=== PATIENT | male | born 1950 | race Caucasian/White ===

== ENCOUNTER 2017-01-15 11:47 | Observation (INO) | payer MEDICARE ==
[~2017-01-15] VITALS: Ht 194.3 cm; Wt 80.9 kg
[~2017-01-15 11:47] MED LIST: ASPIRIN 81MG TA81 MG PO; ASPIRIN ADULT L81 M2 PO; BACLOFEN 10MG T10 MG PO; CIPRO 500MG TA500 MG PO; CLINDAMYCIN150 MG PO; COREG 12.5 MG12.5 MG; COREG 3.125M3.125 MG PO; CRESTOR10 MG PO; LORTAB 5/500 501 TAB PO; NAPROSYN250 M1 PO; PHENERGAN 25MG.25 M1 PO; PREDNISONE 10MG10 MG PO
[2017-01-15 11:49] VITALS: BP 129/78
[2017-01-15 12:11] LABS: HEMOGLOBIN 12.7 g/dL (14.1-18.0); LYMPH # 1.5 K/mm3 (0.7-4.5); LYMPH % 18.1 % (10-50)
--- NOTE | 2017-01-15 12:32 | RADIOLOGY REPORT PS360 ---
CT HEAD WITHOUT CONTRAST CT BONE WINDOWS included ORDERING PHYSICIAN : BEVERLY SANTIAGO PATIENT AGE: 66 years GENDER: Male PROCEDURE: Routine axial images headwithout contrast. Brain & bone windows HISTORY: POSSIBLE SYNCOPLE EPISODE; DIZZINESS headache COMPARISON: Previous CT head 11/20/2011 FINDINGS: No significant change in prior studies. 2012 No acute intracranial findings. No hemorrhage. No mass effect or mass lesion. No subdural nor extra-axial collection. Mild diffuse cerebral atrophy again noted similar to previous studies. The posterior fossa appear satisfactory and unremarkable. The skull is intact. The visualized portions of the paranasal sinuses are clear. Mastoid air cells, middle ear & IACs are unremarkable. Cerumen left external canal noted IMPRESSION: No acute intracranial findings. No significant change since September 2011
--- NOTE | 2017-01-15 12:35 | Emergency Room Report ---
History of Present Illness Time Seen by [id number] Presenting Problem in Triage Pt arrived:Ambulance Stretcher Presenting Problem:PT WAS SITTING IN [place] WHEN HE BECAME DIZZY AND SWEATY. FELT LIKE HE WAS GOING TO PASS OUT. EMS REPORTS PT WAS AWAKE AND ALERT WHEN THEY ARRIVED BUT DIRECTOR PUBLIC SERVICE ON SCENE DESCRIBED WHAT APPEARED TO BE A FOCAL SEIZURE Onset of symptoms date/time:/ or onset unknown for:MEDICAL HX UNKNOWN Treatment Prior to Arrival: 12 LEAD, V/S , 20 G IN THE LEFT AC METHODS TIME ANALYST Provided by :DIRECTOR PUBLIC SERVICE Sepsis Risk Assessment: Temp: 98.3 B/P: 129/78 MAP: 95 Pulse: 59 Resp: 16 Recent fever? N Clinical Suspician of Infection? N Mental Status: 1 - Regular (Normal Baseline) Sepsis Risk:Low Sepsis Risk Have you (or family members/close friends) recently traveled outside the [place]? N If Yes, where/when: Have you had exposure to infectious disease within the past month? N TB? Other? Specify: i agree with the above history, the patient passed out for a minute , denies , cp, palpitation and soa. he is currently asymptomatic. Source patient, RN notes reviewed, family Exam Limitations no limitations ALLERGIES Coded Allergies: lidocaine (Severe, P-[id number]/THROAT; DIFFICULTY BREATHING 05/18/15) Penicillins (05/18/15) sulfamethoxazole (From Bactrim) (05/18/15) trimethoprim (From Bactrim) (05/18/15) Home Medications Reported Medications Carvedilol (Coreg 3.125MG) 3.125 MG PO BID Rosuvastatin Calcium (Crestor) 10 MG PO QHS Naproxen (Naprosyn) 250 MG PO BID Promethazine Hydrochloride (Phenergan 25MG Tab) 12.5 MG PO Q4-6H PRN BACLOFEN (Baclofen) 10 MG PO TID Aspirin 81 MG PO DAILY History Medical History General CAD? No Angina: No [place]: No Hypertension? No Hyperlipidemia? No CHF? No DVT? No PE? No COPD? No Asthma? No Anemia? No GERD? No Gastric ulcers? No GI Bleed? No Hernia? No Thyroid Problems? No Hypothyroidism? No CVA? No Seizures? No Diabetes? No Renal Insuffiency? No End Stage Renal Disease? No UTI? No Stones? No BPH? No GB Disease: No Nephritic Syndrome? No Asplenia? No Hepatitis? No Sickle Cell Disease? No Arthritis? No Migraines? No Cataracts? No Glaucoma? No MRSA? No HIV? No TB? No Anxiety? No Depression? No Cancer? No More? No Immunization Hx DT/Tetanus 5-10 YRS Flu 2012-FSN Pneumonia Received In Past Surgical Hx Previous Surgery?Y BACK SURGERY OPEN HEART VALVE REPLACE Family History Family Hx Diabetes No CAD No Hypertension No Hyperlipidemia No Cancer Yes TB No Social History Smoking Hx Smoker: Never Smoker Tobacco: No Alcohol Alcohol: No Review of Systems All Other Systems Reviewed and Negative Constitutional no symptoms reported, see HPI Eyes no symptoms reported ENT no symptoms reported. Respiratory no symptoms reported Cardiovascular no symptoms reported Gastrointestinal no symptoms reported Genitourinary no symptoms reported. Musculoskeletal no symptoms reported Skin no symptoms reported Psychiatric/Neurological no symptoms reported Physical Exam Vital Signs Vital Signs Date Time Temp Pulse Resp B/P Pulse O2 O2 Flow FiO2 Ox Delivery Rate 01/15 1511 97.4 65 16 100/73 98 01/15 1321 97.4 58 16 118/84 98 / 1240 97.6 51 16 126/69 99 /06 1149 98.3 59 16 129/78 98 - WBC >12,000 or <4,000 or 10% bands? 2 or more SIRS Criteria Met? B/P:129/78 MAP:95 Creatinine >2.0? UA output<0.5ml/kg/hr for 2 hrs? Platelet count >100,000? Lactate >2.0mmol/1? INR >1.2 or PTT > than 60 sec? Evidence of Organ Dysfunction? Provider documented clinical suspician of infection? N Sepsis Criteria Count: 0 Sepsis Risk: Low Sepsis Risk General Appearance normal appearance, WD/WN Eye Exam - bilateral eye normal exam, bilateral eye PERRL, bilateral eye EOMI Ear, Nose, Throat hearing grossly normal, normal ENT inspection Neck normal inspection, non-tender, supple, full range of motion Respiratory Status Yes: trachea midline, chest symmetrical, non tender chest. No: respiratory distress. Lung Sounds bilateral: normal breath sounds, lungs clear. Cardiovascular normal exam, regular rate/rhythm, no peripheral edema, no gallop, no JVD, no murmur, no rub, normal peripheral pulses Peripheral Pulses Pulses normal Yes Gastrointestinal normal bowel sounds, normal exam, non tender, soft, no organomegaly Back normal inspection, no CVA tenderness, no vertebral tenderness Neurologic alert, sales representative groceries II-XII nml as tested, normal exam, oriented x 3 Reflexes Reflexes normal Yes Lymphatic no adenopathy Medical Decision Making LABS/Meds/Orders Pt receiving controlled substance in ED? No Results/Orders Laboratory Tests 01/15/17 1440: Troponin I 0.07 H 01/15/17 1156: Sodium 139, Potassium 3.9, Chloride 105, Carbon Dioxide 29, BUN 14, Creatinine 1.0, Estimated Creat Clear 82, Estimated GFR (MDRD) 74, Glucose 116 H, Calcium 8.6, Total Bilirubin 0.3, AST 16, ALT 23, Alkaline Phosphatase 80, Creatine Kinase 144, CK-MB (CK-2) Rel Index 1.6, CK and CKMB Interp 2.3, Troponin I 0.06, Total Protein 6.4, Albumin 3.0 L, Globulin 3.4 H, Albumin/Globulin Ratio 0.9 L, WBC 8.2, RBC 4.21 L, Hgb 12.7 L, Hct 39.0 L, MCV 92.8, RDW 13.6, Plt Count 170, MPV 8.3, Gran % 72.1, Gran # 5.9, Lymphocytes % 18.1, Monocytes % 7.6, Eosinophils % 1.9, Basophils % 0.3, Lymphocytes # 1.5, Monocytes # 0.6, Eosinophils # 0.2, Basophils # 0.0, PUBS MCHC 32.4, MCH 30.1 Current Medication Orders Sig/Aydin Start time Last Medication Dose Route Stop Time Status Admin Sodium Chloride 10 ML PRN PRN 01/15 1200 AC IV 01/16 1153 Orders Procedure Date/time Status DIET-NOTHING BY MOUTH 01/15 D Active TROPONIN I 01/15 1445 Complete OP COURTSEY MEAL 01/15 1311 Active ELECTROCARDIOGRAM REQUEST 01/[address] HEAD REQ 01/15 115 Complete IV SALINE LOCK 01/15 115 Active CBC WITH AUTO DIFF 01/15 1153 Complete CARDIAC ENZYMES 01/15 115 Complete CHEM 12 PROFILE 01/15 1153 Complete CM/EKG CM/EKG EKG sinus bradycardia 54/m first degree AV block RIGHT bundle branch block LEFT anterior fascicular block baseline artifact no acute change since prior electrocardiogram on March 05, 2012 Departure Departure Time of Disposition 1233 Disposition DC/XFER [facility] Clinical Impression Primary Impression: Syncope Secondary Impressions: Aortic valve disease, CAD (coronary artery disease) Condition STABLE Referrals VENECIA VALDES Additional Instructions per patient request I called [facility] cardiology and spoke with Dr Valdes. He accepted to see as a consulte. so I called Dr. Solitario the hospitalist who accepted the patient in his service. The patient was informed that he is waiting on a bed. 1530 NO BED YET, THE PATIETN WAS AGREEABLE TO BE SEEN BY DR MORALES, I CALLED DR MORALES AND HE ACCEPTED HIM UNTILL A BED IS AVAILABLE AT [facility]. Dr. Hollis Discharge Counseling Counseled pt/family regarding diagnosis, medications/RX, home care, follow up needs ED Critical Care Critical Care No If Critical Care minutes are documented, the time involved in the performance of seperately reportable procedures was not counted toward critical care time documented. I directly delivered medical care to this critically ill and/or injured patient. Timely evaluation and treatment was necessary to address the significant organ system(s) dysfunction present in this patient. at 1531
--- NOTE | 2017-01-15 12:35 | Emergency Room Report ---
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 FELT LIKE HE WAS GOING TO PASS OUT. EMS REPORTS PT WAS AWAKE AND ALERT WHEN THEY ARRIVED BUT CONSTRUCTION AREA MANAGER ON SCENE DESCRIBED WHAT APPEARED TO BE A FOCAL SEIZURE Onset of symptoms date/time:/ or onset unknown for:MEDICAL HX UNKNOWN Treatment Prior to Arrival: 12 LEAD, V/S , 20 G IN THE LEFT AC JUDICIAL REGISTRAR Provided by :CONSTRUCTION AREA MANAGER Sepsis Risk Assessment: Temp: 98.3 B/P: 129/78 MAP: 95 Pulse: 59 Resp: 16 Recent fever? N Clinical Suspician of Infection? N Mental Status: 1 - Regular (Normal Baseline) Sepsis Risk:Low Sepsis Risk Have you (or family members/close friends) recently traveled outside the [place]? N If Yes, where/when: Have you had exposure to infectious disease within the past month? N TB? Other? Specify: i agree with the above history, the patient passed out for a minute , denies , cp, palpitation and soa. he is currently asymptomatic. Source patient, RN notes reviewed, family Exam Limitations no limitations ALLERGIES Coded Allergies: lidocaine (Severe, N-[id number]/THROAT; DIFFICULTY BREATHING 05/18/15) Penicillins (05/18/15) sulfamethoxazole (From Bactrim) (05/18/15) trimethoprim (From Bactrim) (05/18/15) Home Medications Reported Medications Carvedilol (Coreg 3.125MG) 3.125 MG PO BID Rosuvastatin Calcium (Crestor) 10 MG PO QHS Naproxen (Naprosyn) 250 MG PO BID Promethazine Hydrochloride (Phenergan 25MG Tab) 12.5 MG PO Q4-6H PRN BACLOFEN (Baclofen) 10 MG PO TID Aspirin 81 MG PO DAILY History Medical History General CAD? No Angina: No [place]: No Hypertension? No Hyperlipidemia? No CHF? No DVT? No PE? No COPD? No Asthma? No Anemia? No GERD? No Gastric ulcers? No GI Bleed? No Hernia? No Thyroid Problems? No Hypothyroidism? No CVA? No Seizures? No Diabetes? No Renal Insuffiency? No End Stage Renal Disease? No UTI? No Stones? No BPH? No GB Disease: No Nephritic Syndrome? No Asplenia? No Hepatitis? No Sickle Cell Disease? No Arthritis? No Migraines? No Cataracts? No Glaucoma? No MRSA? No HIV? No TB? No Anxiety? No Depression? No Cancer? No More? No Immunization Hx DT/Tetanus 5-10 YRS Flu 2012-FSN Pneumonia Received In Past Surgical Hx Previous Surgery?Y BACK SURGERY OPEN HEART VALVE REPLACE Family History Family Hx Diabetes No CAD No Hypertension No Hyperlipidemia No Cancer Yes TB No Social History Smoking Hx Smoker: Never Smoker Tobacco: No Alcohol Alcohol: No Review of Systems All Other Systems Reviewed and Negative Constitutional no symptoms reported, see HPI Eyes no symptoms reported ENT no symptoms reported. Respiratory no symptoms reported Cardiovascular no symptoms reported Gastrointestinal no symptoms reported Genitourinary no symptoms reported. Musculoskeletal no symptoms reported Skin no symptoms reported Psychiatric/Neurological no symptoms reported Physical Exam Vital Signs Vital Signs Date Time Temp Pulse Resp B/P Pulse O2 O2 Flow FiO2 Ox Delivery Rate 01/15 1511 97.4 65 16 100/73 98 01/15 1321 97.4 58 16 118/84 98 / 1240 97.6 51 16 126/69 99 /06 1149 98.3 59 16 129/78 98 - WBC >12,000 or <4,000 or 10% bands? 2 or more SIRS Criteria Met? B/P:129/78 MAP:95 Creatinine >2.0? UA output<0.5ml/kg/hr for 2 hrs? Platelet count >100,000? Lactate >2.0mmol/1? INR >1.2 or PTT > than 60 sec? Evidence of Organ Dysfunction? Provider documented clinical suspician of infection? N Sepsis Criteria Count: 0 Sepsis Risk: Low Sepsis Risk General Appearance normal appearance, WD/WN Eye Exam - bilateral eye normal exam, bilateral eye PERRL, bilateral eye EOMI Ear, Nose, Throat hearing grossly normal, normal ENT inspection Neck normal inspection, non-tender, supple, full range of motion Respiratory Status Yes: trachea midline, chest symmetrical, non tender chest. No: respiratory distress. Lung Sounds bilateral: normal breath sounds, lungs clear. Cardiovascular normal exam, regular rate/rhythm, no peripheral edema, no gallop, no JVD, no murmur, no rub, normal peripheral pulses Peripheral Pulses Pulses normal Yes Gastrointestinal normal bowel sounds, normal exam, non tender, soft, no organomegaly Back normal inspection, no CVA tenderness, no vertebral tenderness Neurologic alert, records analysis manager II-XII nml as tested, normal exam, oriented x 3 Reflexes Reflexes normal Yes Lymphatic no adenopathy Medical Decision Making LABS/Meds/Orders Pt receiving controlled substance in ED? No Results/Orders Laboratory Tests 01/15/17 1440: Troponin I 0.07 H 01/15/17 1156: Sodium 139, Potassium 3.9, Chloride 105, Carbon Dioxide 29, BUN 14, Creatinine 1.0, Estimated Creat Clear 82, Estimated GFR (MDRD) 74, Glucose 116 H, Calcium 8.6, Total Bilirubin 0.3, AST 16, ALT 23, Alkaline Phosphatase 80, Creatine Kinase 144, CK-MB (CK-2) Rel Index 1.6, CK and CKMB Interp 2.3, Troponin I 0.06, Total Protein 6.4, Albumin 3.0 L, Globulin 3.4 H, Albumin/Globulin Ratio 0.9 L, WBC 8.2, RBC 4.21 L, Hgb 12.7 L, Hct 39.0 L, MCV 92.8, RDW 13.6, Plt Count 170, MPV 8.3, Gran % 72.1, Gran # 5.9, Lymphocytes % 18.1, Monocytes % 7.6, Eosinophils % 1.9, Basophils % 0.3, Lymphocytes # 1.5, Monocytes # 0.6, Eosinophils # 0.2, Basophils # 0.0, PUBS MCHC 32.4, MCH 30.1 Current Medication Orders Sig/Aydin Start time Last Medication Dose Route Stop Time Status Admin Sodium Chloride 10 ML PRN PRN 01/15 1200 AC IV 01/16 1153 Orders Procedure Date/time Status DIET-NOTHING BY MOUTH 01/15 D Active TROPONIN I 01/15 1445 Complete OP COURTSEY MEAL 01/15 1311 Active ELECTROCARDIOGRAM REQUEST 01/[address] HEAD REQ 01/15 115 Complete IV SALINE LOCK 01/15 115 Active CBC WITH AUTO DIFF 01/15 1153 Complete CARDIAC ENZYMES 01/15 115 Complete CHEM 12 PROFILE 01/15 1153 Complete CM/EKG CM/EKG EKG sinus bradycardia 54/m first degree AV block RIGHT bundle branch block LEFT anterior fascicular block baseline artifact no acute change since prior electrocardiogram on March 05, 2012 Departure Departure Time of Disposition 1233 Disposition DC/XFER [facility] ER [facility] Clinical Impression Primary Impression: Syncope Secondary Impressions: Aortic valve disease, CAD (coronary artery disease) Condition STABLE Referrals VENECIA VALDES Additional Instructions per patient request I called [facility] cardiology and spoke with Dr Valdes. He accepted to see as a consulte. so I called Dr. Solitario the hospitalist who accepted the patient in his service. The patient was informed that he is waiting on a bed. 1530 NO BED YET, THE PATIETN WAS AGREEABLE TO BE SEEN BY DR MORALES, I CALLED DR MORALES AND HE ACCEPTED HIM UNTILL A BED IS AVAILABLE AT [facility]. Dr. Hollis Discharge Counseling Counseled pt/family regarding diagnosis, medications/RX, home care, follow up needs ED Critical Care Critical Care No If Critical Care minutes are documented, the time involved in the performance of seperately reportable procedures was not counted toward critical care time documented. I directly delivered medical care to this critically ill and/or injured patient. Timely evaluation and treatment was necessary to address the significant organ system(s) dysfunction present in this patient. at 1531
[2017-01-15 16:35] VITALS: BP 120/53
[2017-01-15 16:45] VITALS: BP 120/53
[2017-01-15 19:45] VITALS: BP 120/69
[2017-01-15 19:48] VITALS: BP 120/69
[2017-01-16 00:10] VITALS: BP 123/67
[2017-01-16 04:01] VITALS: BP 118/74
--- NOTE | 2017-01-16 07:45 | Discharge Summary Standard ---
Demographics: Admit date: 01/16/17 Chief complaint: Syncope PRIMARY DIAGNOSIS: SYNCOPY Allergies: Coded Allergies: lidocaine (Severe, H-[id number]/THROAT; DIFFICULTY BREATHING 05/18/15) Penicillins (05/18/15) sulfamethoxazole (From Bactrim) (05/18/15) trimethoprim (From Bactrim) (05/18/15) History of present illness: History of present illness: 66-year-old male with history of coronary artery disease and previous syncopal episode in May 2016 presented to the emergency department after a brief syncopal episode at [facility]. Patient had been very active on Monday morning and went to [facility]. While at [facility] she began to feel lightheaded and lost consciousness for a brief period of time. When he came to the admits he is a little disoriented and after 4-5 hours he felt back to baseline. He presented to the emergency department. Cardiac enzymes were negative. Electrocardiogram was abnormal but unchanged from previous electrocardiogram. Patient requested transfer to [facility] under the care of his ciaio lumite injector Dr. Adriano Bolton. [facility] was contacted but did not have any beds available. Patient was admitted at our facility awaiting bed transfer. Past medical history: Family HX Family Hx Insignificant No Diabetes No CAD No Hypertension No Hyperlipidemia No Cancer Yes TB No Immunization HX DT/Tetanus 5-10 YRS Flu 2012-FSN Pneumonia Received In Past TB Test in last year No General CAD? No Angina: No [place]: No Hypertension? No Hyperlipidemia? No CHF? No DVT? No PE? No COPD? No Asthma? No Anemia? No GERD? No Gastric ulcers? No GI Bleed? No Hernia? No Thyroid Problems? No Hypothyroidism? No CVA? No Seizures? No Diabetes? No Renal Insuffiency? No UTI? No Stones? No BPH? No GB Disease: No Nephritic Syndrome? No Asplenia? No Hepatitis? No Sickle Cell Disease? No Arthritis? No Migraines? No Cataracts? No Glaucoma? No MRSA? No HIV? No TB? No Anxiety? No Depression? No Cancer? No More? No Past Surgical HX Previous Surgery?Y BACK SURGERY OPEN HEART VALVE REPLACE Current home meds: Reported Medications Carvedilol (Coreg 3.125MG) 3.125 MG PO BID Rosuvastatin Calcium (Crestor) 80 MG PO QHS Aspirin 81 MG PO DAILY Social Hx: Smoking HX Tobacco No Are you/the child exposed to second-hand smoke: No Alcohol Alcohol: No Hx of Drug Use Drug Use? No Review of systems: Constitutional see HPI. Respiratory no symptoms reported. Cardiovascular see HPI Gastrointestinal/Abdominal no symptoms reported Genitourinary no symptoms reported. Musculoskeletal no symptoms reported. Neurological Yes: no symptoms reported. Exam: Lab data for last 24 hours: Laboratory Tests 01/16/17 0315: Creatine Kinase 106, CK-MB (CK-2) Rel Index 0.8, CK and CKMB Interp 0.9, Troponin I 0.06 01/15/17 2105: Creatine Kinase 134, CK-MB (CK-2) Rel Index 1.0, CK and CKMB Interp 1.4, Troponin I 0.05 01/15/17 1440: Troponin I 0.07 H 01/15/17 1156: Sodium 139, Potassium 3.9, Chloride 105, Carbon Dioxide 29, BUN 14, Creatinine 1.0, Estimated Creat Clear 82, Estimated GFR (MDRD) 74, Glucose 116 H, Calcium 8.6, Total Bilirubin 0.3, AST 16, ALT 23, Alkaline Phosphatase 80, Creatine Kinase 144, CK-MB (CK-2) Rel Index 1.6, CK and CKMB Interp 2.3, Troponin I 0.06, Total Protein 6.4, Albumin 3.0 L, Globulin 3.4 H, Albumin/Globulin Ratio 0.9 L, WBC 8.2, RBC 4.21 L, Hgb 12.7 L, Hct 39.0 L, MCV 92.8, RDW 13.6, Plt Count 170, MPV 8.3, Gran % 72.1, Gran # 5.9, Lymphocytes % 18.1, Monocytes % 7.6, Eosinophils % 1.9, Basophils % 0.3, Lymphocytes # 1.5, Monocytes # 0.6, Eosinophils # 0.2, Basophils # 0.0, PUBS MCHC 32.4, MCH 30.1 Admission vital signs: 1ST Vital Signs Result Date Time Pulse Ox 98 01/15 1149 B/P 129/78 01/15 1149 Temp 98.3 01/15 1149 Pulse 59 01/15 1149 Resp 16 01/15 1149 O2 Delivery ROOM AIR 01/15 1635 Exam General appearance: normal appearance, alert, awake Eyes: normal exam, anicteric ENT: normal exam, mucous membranes moist Neck: normal inspection, non-tender, no carotid bruit, no JVD Cardiovascular: normal exam Respiratory: normal exam, clear to auscultation ABD: normal exam, non-distended, normal bowel sounds Hospital Course Hospital Course: Patient was admitted. Serial enzymes were performed and remained within normal limits. On the morning of the a bed became available at [facility] and the patient was transferred there for further evaluation by his ciaio lumite injector. Medications Medications: Discharge meds are as noted. Follow up Follow up in office in: 1 DAY with: ADRIANO BOLTON at 0745
--- NOTE | 2017-01-16 07:45 | Discharge Summary Standard ---
Demographics: Admit date: 01/16/17 Chief complaint: Syncope PRIMARY DIAGNOSIS: SYNCOPY Allergies: Coded Allergies: lidocaine (Severe, T-[id number]-FUCP/THROAT; DIFFICULTY BREATHING 05/18/15) Penicillins (05/18/15) sulfamethoxazole (From Bactrim) (05/18/15) trimethoprim (From Bactrim) (05/18/15) History of present illness: History of present illness: 66-year-old male with history of coronary artery disease and previous syncopal episode in May 2016 presented to the emergency department after a brief syncopal episode at [facility]. Patient had been very active on Monday morning and went to [facility]. While at [facility] she began to feel lightheaded and lost consciousness for a brief period of time. When he came to the admits he is a little disoriented and after 4-5 hours he felt back to baseline. He presented to the emergency department. Cardiac enzymes were negative. Electrocardiogram was abnormal but unchanged from previous electrocardiogram. Patient requested transfer to [facility] under the care of his cad designer Dr. Adriano Bolton. [facility] was contacted but did not have any beds available. Patient was admitted at our facility awaiting bed transfer. Past medical history: Family HX Family Hx Insignificant No Diabetes No CAD No Hypertension No Hyperlipidemia No Cancer Yes TB No Immunization HX DT/Tetanus 5-10 YRS Flu 2012-FSN Pneumonia Received In Past TB Test in last year No General CAD? No Angina: No CT: No Hypertension? No Hyperlipidemia? No CHF? No DVT? No PE? No COPD? No Asthma? No Anemia? No GERD? No Gastric ulcers? No GI Bleed? No Hernia? No Thyroid Problems? No Hypothyroidism? No CVA? No Seizures? No Diabetes? No Renal Insuffiency? No UTI? No Stones? No BPH? No GB Disease: No Nephritic Syndrome? No Asplenia? No Hepatitis? No Sickle Cell Disease? No Arthritis? No Migraines? No Cataracts? No Glaucoma? No MRSA? No HIV? No TB? No Anxiety? No Depression? No Cancer? No More? No Past Surgical HX Previous Surgery?Y BACK SURGERY OPEN HEART VALVE REPLACE Current home meds: Reported Medications Carvedilol (Coreg 3.125MG) 3.125 MG PO BID Rosuvastatin Calcium (Crestor) 80 MG PO QHS Aspirin 81 MG PO DAILY Social Hx: Smoking HX Tobacco No Are you/the child exposed to second-hand smoke: No Alcohol Alcohol: No Hx of Drug Use Drug Use? No Review of systems: Constitutional see HPI. Respiratory no symptoms reported. Cardiovascular see HPI Gastrointestinal/Abdominal no symptoms reported Genitourinary no symptoms reported. Musculoskeletal no symptoms reported. Neurological Yes: no symptoms reported. Exam: Lab data for last 24 hours: Laboratory Tests 01/16/17 0315: Creatine Kinase 106, CK-MB (CK-2) Rel Index 0.8, CK and CKMB Interp 0.9, Troponin I 0.06 01/15/17 2105: Creatine Kinase 134, CK-MB (CK-2) Rel Index 1.0, CK and CKMB Interp 1.4, Troponin I 0.05 01/15/17 1440: Troponin I 0.07 H 01/15/17 1156: Sodium 139, Potassium 3.9, Chloride 105, Carbon Dioxide 29, BUN 14, Creatinine 1.0, Estimated Creat Clear 82, Estimated GFR (MDRD) 74, Glucose 116 H, Calcium 8.6, Total Bilirubin 0.3, AST 16, ALT 23, Alkaline Phosphatase 80, Creatine Kinase 144, CK-MB (CK-2) Rel Index 1.6, CK and CKMB Interp 2.3, Troponin I 0.06, Total Protein 6.4, Albumin 3.0 L, Globulin 3.4 H, Albumin/Globulin Ratio 0.9 L, WBC 8.2, RBC 4.21 L, Hgb 12.7 L, Hct 39.0 L, MCV 92.8, RDW 13.6, Plt Count 170, MPV 8.3, Gran % 72.1, Gran # 5.9, Lymphocytes % 18.1, Monocytes % 7.6, Eosinophils % 1.9, Basophils % 0.3, Lymphocytes # 1.5, Monocytes # 0.6, Eosinophils # 0.2, Basophils # 0.0, PUBS MCHC 32.4, MCH 30.1 Admission vital signs: 1ST Vital Signs Result Date Time Pulse Ox 98 01/15 1149 B/P 129/78 01/15 1149 Temp 98.3 01/15 1149 Pulse 59 01/15 1149 Resp 16 01/15 1149 O2 Delivery ROOM AIR 01/15 1635 Exam General appearance: normal appearance, alert, awake Eyes: normal exam, anicteric ENT: normal exam, mucous membranes moist Neck: normal inspection, non-tender, no carotid bruit, no JVD Cardiovascular: normal exam Respiratory: normal exam, clear to auscultation ABD: normal exam, non-distended, normal bowel sounds Hospital Course Hospital Course: Patient was admitted. Serial enzymes were performed and remained within normal limits. On the morning of the a bed became available at [facility] and the patient was transferred there for further evaluation by his cad designer. Medications Medications: Discharge meds are as noted. Follow up Follow up in office in: 1 DAY with: ADRIANO BOLTON at 0745
[2017-01-16 07:56] VITALS: BP 109/63
--- OUTSIDE RECORDS SUMMARY | 2017-01-16 16:44 | External Medical Summary Rpt ---
Author Author [facility] Organization [facility] Address Unknown Phone Unavailable Care Team Providers Care Supervisor Polishing Name Role Phone AVILA (REF) PCP [phone] Encounter [facility] Date(s): 05/28/16 - 05/30/16 [facility] [address] [place] [id number]- [phone] Discharge Diagnosis: Nausea & vomiting Discharge Disposition: IP Self Care / Home Attending Physician: JUANITO WILLIAMSON, MD DOUGLAS-INT Admitting Physician: JUANITO WILLIAMSON, MD DOUGLAS-INT Referring Physician: TERESITA PARRA MD Reason for Visit VOMITING, UNSPECIFIED Vital Signs Most recent 1 2 3 to oldest [Reference Range]: Temperature Oral (05/30/16 Axillary Oral (05/30/16 Source 11:15 AM) (05/30/16 6:45 2:52 AM) AM) Temperature Fahrenheit Fahrenheit Fahrenheit Mode (05/30/16 11:15 (05/30/16 6:45 (05/30/16 2:52 AM) AM) AM) Temperature, 98.4 Deg F 98.3 Deg F 99 Deg F Fahrenheit (05/30/16 11:15 (05/30/16 6:45 (05/30/16 2:52 [96.8-99.7 AM) AM) AM) Deg F] Clinical 36.9 Deg C 36.8 Deg C 37.2 Deg C Temperature, (05/30/16 11:15 (05/30/16 6:45 (05/30/16 2:52 C AM) AM) AM) Pulse Method Non-Invasive BP Non-Invasive BP Non-Invasive BP Device (05/30/16 Device (05/30/16 Device (05/29/16 6:45 AM) 2:52 AM) 8:12 PM) Pulse Source Brachial, Right Brachial, Right Brachial, Right (05/30/16 6:45 (05/30/16 2:52 (05/29/16 8:12 AM) AM) PM) Pulse Rhythm Regular (05/30/16 Regular (05/30/16 Regular (05/29/16 6:45 AM) 2:52 AM) 8:12 PM) Peripheral 89 bpm (05/28/16 Pulse Rate 12:24 PM) [60-100 bpm] Heart Rate 68 bpm (05/30/16 70 bpm (05/30/16 69 bpm (05/30/16 Monitored 11:15 AM) 6:45 AM) 2:52 AM) [60-100 bpm] Respiratory 16 Breaths/Min 14 Breaths/Min 14 Breaths/Min Rate [14-20 (05/30/16 11:15 (05/30/16 6:45 (05/30/16 2:52 Breaths/Min] AM) AM) AM) Blood Arm, right upper Arm, right upper Arm, right upper Pressure (05/30/16 6:45 (05/30/16 2:52 (05/29/16 8:12 Location AM) AM) PM) Blood Non-Invasive BP Non-Invasive BP Non-Invasive BP Pressure Device (05/30/16 Device (05/30/16 Device (05/29/16 Source 6:45 AM) 2:52 AM) 8:12 PM) Blood Side, Left Side, Right Supine (05/29/16 Pressure (05/30/16 6:45 (05/30/16 2:52 8:12 PM) Position AM) AM) Blood 124/86 mmHg 125/80 mmHg 117/78 mmHg Pressure (05/30/16 11:15 (05/30/16 6:45 (05/30/16 2:52 [90-140/60-9 AM) AM) AM) 0 mmHg] Mean 95 (05/30/16 6:45 89 (05/30/16 2:52 90 (05/29/16 Arterial AM) AM) 10:15 PM) Pressure (MAP)-BMDI Oxygen 98 % (05/30/16 96 % (05/30/16 95 % (05/30/16 Saturation 11:15 AM) 6:45 AM) 2:52 AM) [94-100 %] Oxygen Room air Room air Room air Therapy Mode (05/30/16 11:15 (05/30/16 6:45 (05/30/16 2:52 AM) AM) AM) Blood 139/86 mmHg Pressure (05/28/16 2:29 Supine PM) Pulse Supine 81 bpm (05/28/16 2:29 PM) Blood 150/85 mmHg Pressure (05/28/16 2:29 Sitting PM) Pulse 95 bpm (05/28/16 Sitting 2:29 PM) Blood 145/70 mmHg Pressure (05/28/16 2:29 Standing PM) Pulse 100 bpm (05/28/16 Standing 2:29 PM) Problem List Condition Effective Status Health Informant Dates Status Arthritis(Co Active patient nfirmed) Back Active patient pain(Confirm ed) Coronary Active patient artery disease(Conf irmed) Hard of Active patient hearing(Conf irmed) Heart Active patient valve(Confir med) Hypertension Active patient (Confirmed) Allergies, Adverse Reactions, Alerts Substance Reaction Severity Status lidocaine DYSPNEA BRADYCARDIA CONFUSION Active penicillin1, 2 Active sulfa drugs3 Active 1s/w MICHAEL Perkins in OPS 02/17/2010. pt has taken cephalexin for 10 days without reaction, she will use cefazolin out of acudose per OPS pre-op abx order on 02/17/2010 - pt currently on cephalexin.2s/w MICHAEL Perkins in OPS 02/17/2010. pt has taken cephalexin for 10 days without reaction, she will use cefazolin out of acudose per OPS pre-op abx order on 02/17/2010 - pt currently on cephalexin.3unknoeufemia dunn was a child Medications atorvastatin (Lipitor 20 mg oral tablet) 1 Tab, Oral, Every Day, Refills: 0 docusate (Colace 100 mg oral capsule)1 Cap, Oral, Two Times A Day, Refills: 0Patient Instructions: New medication. Available for purchase over the counter. famotidine (famotidine 20 mg oral tablet)1 Tab, Oral, Every Day, Refills: 0Patient Instructions: New medication. [facility] provider: LON ULLOA MD-INT lisinopril (lisinopril 10 mg oral tablet)0.5 Tab, Oral, Every Day, Refills: 0Patient Instructions: Please note: new dose. Prescription sent to [facility] provider: LON ULLOA MD-INT nitroglycerin (Nitrostat 0.4 mg sublingual tablet)1 Tab, SubLINgual , every 5 minutes, ( If chest pain not relieved in 5 minutes after first dose, seek immediate medical attention), As Needed, Chest Pain, Refills: 0 ticagrelor (Brilinta 90 mg oral tablet) 1 Tab, Oral, Two Times A Day, Refills: 0 Results GENERAL CHEMISTRY Most recent 1 2 3 to oldest [Reference Range]: Sodium Level 140 mmol/L [136-146 (05/28/16 1:16 mmol/L] PM) Potassium 4.1 mmol/L Level (05/28/16 1:16 [3.5-5.1 PM) mmol/L] Chloride 104 mmol/L Level (05/28/16 1:16 [102-112 PM) mmol/L] Carbon 26 mmol/L Dioxide (05/28/16 1:16 Level [21-32 PM) mmol/L] Anion Gap 14 (05/28/16 1:16 [9-20] PM) Glucose 101 mg/dL Level (05/28/16 1:16 [74-106 PM) mg/dL] Blood Urea 13 mg/dL Nitrogen (05/28/16 1:16 [7-22 mg/dL] PM) Creatinine 0.70 mg/dL Level (05/28/16 1:16 [0.70-1.30 PM) mg/dL] eGFR 136 mL/min/1.73m2 [>=60 (05/28/16 1:16 mL/min/1.73m PM) 2] eGFR 112 mL/min/1.73m2 NonAfrican (05/28/16 1:16 [>=60 PM) mL/min/1.73m 2] Bun/Creatini 18.6 (05/28/16 ne 1:16 PM) [8.0-20.0] Calcium 9.5 mg/dL Level (05/28/16 1:16 [8.5-10.1 PM) mg/dL] Protein 6.6 Gram/dL Total (05/28/16 1:16 [6.4-8.2 PM) Gram/dL] Albumin 3.2 Gram/dL Level *LOW*(05/28/16 [3.4-5.0 1:16 PM) Gram/dL] Globulin 3.4 Gram/dL [1.5-4.5 (05/28/16 1:16 Gram/dL] PM) A/G Ratio 0.9 [1.1-2.5] *LOW*(05/28/16 1:16 PM) Bilirubin 0.8 mg/dL Total (05/28/16 1:16 [0.2-1.0 PM) mg/dL] Alk Phos 81 Units/Liter [27-136 (05/28/16 1:16 Units/Liter] PM) AST [5-37 14 Units/Liter Units/Liter] (05/28/16 1:16 PM) ALT [12-78 18 Units/Liter Units/Liter] (05/28/16 1:16 PM) Lipase Level 95 Units/Liter [73-393 (05/28/16 1:16 Units/Liter] PM) Uric Acid 4.1 mg/dL [3.5-7.2 (05/28/16 6:03 mg/dL] PM) CARDIAC SPECIFIC MARKERS Most recent 1 2 3 to oldest [Reference Range]: CK [39-308 52 Units/Liter 53 Units/Liter Units/Liter] (05/29/16 8:30 1(05/28/16 11:40 AM) PM) Troponin I 0.129 ng/mL 0.173 ng/mL Ultra *HI*(05/28/16 *HI*(05/28/16 [0.015-0.045 10:02 PM) 1:16 PM) ng/mL] CK MB 1.30 ng/mL 1.50 ng/mL 1.40 ng/mL [0.50-3.60 (05/29/16 12:53 (05/29/16 8:30 2(05/28/16 11:40 ng/mL] PM) AM) PM) 1Result Comment: Collection date/time has been modified to: 23:40:00. Previous collection date/time: 18:03:00.2Result Comment: Collection date/time has been modified to: 23:40:00. Previous collection date/ time: 18:03:00.HEMATOLOGY Most recent 1 2 3 to oldest [Reference Range]: WBC [4.2-9.1 13.8 K/uL K/uL] *HI*(05/28/16 1:16 PM) RBC 4.65 Million/uL [4.63-6.08 (05/28/16 1:16 Million/uL] PM) Hgb 13.8 g/dL [13.7-17.5 (05/28/16 1:16 g/dL] PM) Hct 41.4 % (05/28/16 [40.1-51.0 1:16 PM) %] MCV 89.0 fL (05/28/16 [79.0-94.8 1:16 PM) fL] MCH 29.7 pg (05/28/16 [25.6-32.2 1:16 PM) pg] MCHC 33.3 Gram/dL [32.2-36.5 (05/28/16 1:16 Gram/dL] PM) Platelet 183 K/uL Count (05/28/16 1:16 [163-369 PM) K/uL] MPV 10.6 fL (05/28/16 [9.4-12.4 1:16 PM) fL] RDW 14.1 % (05/28/16 [11.6-14.4 1:16 PM) %] Neut % 81.4 % [34.0-71.0 *HI*(05/28/16 %] 1:16 PM) Neut # 11.22 K/uL [1.56-6.13 *HI*(05/28/16 K/uL] 1:16 PM) Lymph % 6.4 % [19.3-53.1 *LOW*(05/28/16 %] 1:16 PM) Lymph # 0.89 x10(3)/uL [1.00-3.90 *LOW*(05/28/16 x10(3)/uL] 1:16 PM) [place] % 11.3 % [3.0-9.0 %] *HI*(05/28/16 1:16 PM) [place] # 1.56 K/uL [0.16-1.00 *HI*(05/28/16 K/uL] 1:16 PM) Eos % 0.4 % (05/28/16 [0.0-7.0 %] 1:16 PM) Eos # 0.05 x10(3)/uL [0.00-0.80 (05/28/16 1:16 x10(3)/uL] PM) Baso % 0.1 % (05/28/16 [0.0-1.5 %] 1:16 PM) Baso # 0.02 x10(3)/uL [0.00-0.20 (05/28/16 1:16 x10(3)/uL] PM) Slide Review No (05/28/16 1:16 PM) IG# 0.06 x10(3)/uL [0.00-0.05 *HI*(05/28/16 x10(3)/uL] 1:16 PM) IG% 0.40 % (05/28/16 [0.00-0.60 1:16 PM) %] Immunizations No data available for this section Procedures No data available for this section Social History Social History Response Type Smoking Status Former smoker; Years of Tobacco Use 20; Month Tobacco Last Used 2009 Assessment and Plan Extracted from: Title: [place] [facility] Author: BERONICA, Date: 05/29/16 [facility] Anguiano RN daily progress note Subjective Pain improved No tacho N and V Health Status Problem list: Active Problems (6) Arthritis Back pain Coronary artery disease Hard of hearing Heart valve Hypertension ObjectiveIntake and Output 24 hour intake: Total 100 ml 24 hour output: Total 250 mlVS/MeasurementsVitals Signs (last 24 hrs) Last Charted Minimum MaximumTemp 98.9 (MAY 29 08:03)98.9 (MAY 29 08:03)98.1 (MAY 28 12:24)Mon HR 70 (MAY 29 08:03)67 (MAY 29 03:45)86 (MAY 28 12:30)Periph HR 89 (MAY 28 12:24)89 (MAY 28 12:24)89 (MAY 28 12:24)Resp Rate 18 (MAY 29 08:03)16 (MAY 28 12:30)H 27 (MAY 28 20:30)SBP H 152 (MAY 29 08:03)112 (MAY 28 21:30)H 177 (MAY 28 16:00)DBP H 94 (MAY 29 08:03)67 (MAY 28 21:30)H 95 (MAY 28 23:10)MAP 115 (MAY 29 08:03)82 (MAY 28 21:30)115 (MAY 29 08:03)SpO2 97 (MAY 29 08:03)L 90 (MAY 28 14:00)100 (MAY 28 15:00)General: Alert and oriented, No acute distress.Eye: Pupils are equal, round and reactive to light.HENT: Normocephalic.Neck: Supple, Non-tender.Respiratory: Respirations are non-labored, Breath sounds are equal, Symmetrical chest wall expansion.Cardiovascular: Normal rate, Regular rhythm, No edema.Gastrointestinal: Soft, Non-tender, Non-distended, Normal bowel sounds.Genitourinary: No costovertebral angle tenderness.Musculoskeletal: Normal range of motion.Integumentary: Warm, Dry, Intact.Neurologic: Alert, Oriented, No focal deficits.Psychiatric: Cooperative, Appropriate mood & affect. Gastrointestinal: Soft, Non-tender, Non-distended, Normal bowel sounds. Genitourinary: No costovertebral angle tenderness. Musculoskeletal: Normal range of motion. Integumentary: Warm, Dry, Intact. Neurologic: Alert, Oriented, No focal deficits. Psychiatric: Cooperative, Appropriate mood & affect. Results ReviewTelemetrySR MAY 28 13:16 140 | 104 | 13 / 101 4.1 | 26 | 0.70 \\ MAY 28 13:16 \\ 13.8 / H 13.8 183 / 41.4 \\Cardiac Markers (Current Encounter/Past 24 Hours)CK MB 05/29/2016 00:08CK 53 Units/Liter 05/29/2016 00:08 Radiology Results (Last 48 hours)[id number] -- 05/28/2016 17:40CR Chest 1 Vw Portable (05/28/2016 13:31) Result: CHEST ONE VIEWHISTORY: Abnormal cardiovascular exam, shortness of breath.COMPARISON: 05/24/2012.FINDINGS: No acute pulmonary opacity is present. There is no evidence ofeffusion or pneumothorax. There is evidence of prior median sternotomy, presumably from CABG. Otherwise, mediastinum is unremarkable.Heart size is normal. IMPRESSION: Unremarkable chest, status post coronary artery bypassgrafting. MAY 28 13:16 \\ 13.8 / H 13.8 183 / 41.4 \\ Cardiac Markers (Current Encounter/Past 24 Hours) CK MB 05/29/2016 00:08 CK 53 Units/Liter 05/29/2016 00:08 Radiology Results (Last 48 hours) [id number] -- 05/28/2016 17:40 CR Chest 1 Vw Portable (05/28/2016 13:31) Result: CHEST ONE VIEWHISTORY: Abnormal cardiovascular exam, shortness of breath.COMPARISON: 05/24/2012.FINDINGS: No acute pulmonary opacity is present. There is no evidence ofeffusion or pneum othorax. There is evidence of prior median sternotomy, presumably from CABG. Otherwise, mediastinum is unremarkable.Heart size is normal. IMPRESSION: Unremarkable chest, status post coronary artery bypassgrafting. Impression and PlanIMPRESSION:Nausea / VomitingCAD--Hx CABG---SP LHC with BMS---> LAD 05/25/16VHD--Hx AVR / MVRHTNHLDRemote tobacco abuseCVD----SP AAA repairPLAN;05/29/16Awaiting recordsTroponin on the way down.No more symptoms. Ok for d/c today. They will follow up with dr. Briggs in [facility].05/28/16Repeat troponinRestart DAPT / Statin / BBIf recurrent vomiting will need IM workupFollow up with cardiology in 3-4 weeksWill admit overnight for observation. I am concerned about the degree of abnormality in the EKG, as well as the fact that apparently the presenting symptom was N and V for the PCI as well. Need records. CVD----SP AAA repair PLAN; 05/29/16 Awaiting records Troponin on the way down. No more symptoms. Ok for d/c today. They will follow up with dr. Briggs in [facility]. 05/28/16 Repeat troponin Restart DAPT / Statin / BB If recurrent vomiting will need IM workup Follow up with cardiology in 3-4 weeks Will admit overnight for observation. I am concerned about the degree of abnormality in the EKG, as well as the fact that apparently the presenting symptom was N and V for the PCI as well. Need records. Hospital Discharge Instructions Patient EducationAngiogram, Angioplasty, or Stent Placement, Care After (Custom) (CUSTOM) Groin Site Care (Custom) (CUSTOM) Hypertension Nausea and Vomiting"
--- OUTSIDE RECORDS SUMMARY | 2017-01-16 16:44 | External Medical Summary Rpt ---
Author Author [facility] Organization [facility] Address Unknown Phone Unavailable Care Team Providers Care Pararescue Manager Name Role Phone AVILA (REF) PCP [phone] Encounter [facility] Date(s): 05/28/16 - 05/28/16 [facility] [address] [place] [address]- [phone] Discharge Disposition: OP Self Care or Home Attending Physician: TERESITA PARRA MD Admitting Physician: DON, MAUREEN Reason for Visit SOA Vital Signs No data available for this section Problem List Condition Effective Status Health Informant [...] order on 02/17/2010 - pt currently on cephalexin.3unknown reactio was a child Medications No data available for this section Results No data available for this section Immunizations No data available for this section Procedures No data available for this section Social History Social History Response Type Smoking Status Former smoker; Years of Tobacco Use 20; Month Tobacco Last Used 2009 Assessment and Plan No data available for this section Hospital Discharge Instructions No data available for this section
--- OUTSIDE RECORDS SUMMARY | 2017-01-16 16:44 | External Medical Summary Rpt ---
Author Author [facility] Organization [facility] Address Unknown Phone Unavailable Care Team Providers Care Process Engineering Technician Name Role Phone AVILA (REF) PCP [phone] Encounter [facility] Date(s): 05/28/16 - 05/28/16 [facility] [address] [place] [address]- [phone] Discharge Disposition: OP Self Care or Home [...]
--- OUTSIDE RECORDS SUMMARY | 2017-01-16 16:44 | External Medical Summary Rpt ---
Author Author [facility] Organization [facility] Address Unknown Phone Unavailable Care Team Providers Care Gas Furnace Installer Name Role Phone AVILA (REF) PCP [phone] Encounter [facility] Date(s): 05/28/16 - 05/30/16 [facility] [address] [place] [address]- Discharge Diagnosis: Nausea & vomiting Discharge Disposition: [...] 0Patient Instructions: New medication. [facility]Ordering provider: LON ULLOA MD-INT lisinopril (lisinopril [...] 0.89 x10(3)/uL [1.00-3.90 *LOW*(05/28/16 x10(3)/uL] 1:16 PM) [place] % 11.3 % [3.0-9.0 %] *HI*(05/28/16 1:16 PM) [place] # 1.56 K/uL [0.16-1.00 *HI*(05/28/16 K/uL] 1:16 [...] Units/Liter 05/29/2016 00:08 Radiology Results (Last 48 hours)[id number] -- 05/28/2016 17:40CR Chest 1 Vw Portable [...] 05/29/2016 00:08 Radiology Results (Last 48 hours) [id number] -- 05/28/2016 17:40 CR Chest 1 Vw [...] will follow up with dr. Briggs in [facility].05/28/16Repeat troponinRestart DAPT / Statin / BBIf recurrent [...] will follow up with dr. Briggs in [facility]. 05/28/16 Repeat troponin Restart DAPT / Statin [...]
--- OUTSIDE RECORDS SUMMARY | 2017-01-16 16:45 | External Medical Summary Rpt ---
Author Author [facility] Organization [facility] Address Unknown Phone Unavailable Care Team Providers Care It Auditor Name Role Phone Rima CASTILLO PCP [phone] Encounter [facility] [id number] Date(s): 06/14/16 - 09/12/16 [facility] [address] [place] [address]- [phone] Discharge Disposition: OP Self Care or Home Attending Physician: ALLIE CAUSEY MD-CAR Admitting Physician: ALLIE CAUSEY MD-CAR Referring Physician: ALLIE CAUSEY MD-CAR Reason for Visit ATHSCL HEART DISEASE OF [place] CORONARY ARTERY W/O ANG PCTRS Vital Signs No data available for this [...] order on 02/17/2010 - pt currently on cephalexin.3unknowchapo dunn was a child Medications aspirin (aspirin 81 mg oral tablet) 1 Tab, Oral, Every Day, Refills: 0 atorvastatin (Lipitor 20 mg oral tablet) 1 Tab, Oral, Every Day, Refills: 0 carvedilol (Coreg 3.125 mg oral tablet) 1 Tab, Oral, Two Times A Day, Refills: 0 docusate (Colace 100 mg oral capsule) 1 Cap, Oral, Two Times A Day, Refills: 0 famotidine (famotidine 20 mg oral tablet) 1 Tab, Oral, Every Day, Refills: 0 Ordering provider: LON ULLOA MD-INT lisinopril (lisinopril 10 mg oral tablet) 0.5 Tab, Oral, Every Day, Refills: 0 Ordering provider: LON ULLOA MD-INT nitroglycerin (Nitrostat 0.4 mg sublingual tablet)1 Tab, SubLINgual , every 5 minutes, ( If chest pain not relieved in 5 minutes after first dose, seek immediate medical attention), As Needed, Chest Pain, Refills: 0 ticagrelor (Brilinta 90 mg oral tablet) 1 Tab, Oral, Two Times A Day, Refills: 0 Results No data available for this section [...]
--- OUTSIDE RECORDS SUMMARY | 2017-01-16 16:45 | External Medical Summary Rpt ---
Author Author [facility] Organization [facility] Address Unknown Phone Unavailable Care Team Providers Care Health Manager Name Role Phone Rima CASTILLO PCP [phone] Encounter [facility] [id number] Date(s): 06/14/16 - 09/12/16 [facility] [address] [place] [address]- Discharge Disposition: OP Self Care or Home Attending Physician: ALLIE CAUSEY MD-CAR Admitting Physician: ALLIE CAUSEY MD-CAR Referring Physician: ALLIE CAUSEY MD-CAR Reason for Visit ATHSCL HEART DISEASE OF [place] CORONARY ARTERY W/O ANG PCTRS Vital Signs [...]
--- OUTSIDE RECORDS SUMMARY | 2017-01-16 16:47 | External Medical Summary Rpt ---
Demographics Preferred Language Algerian Marital Status Unknown Pentecostal Affiliation Unknown Race Unknown Ethnic Group Unknown Author Author MARILYN Address Unknown Phone Immunization No patient found.
--- OUTSIDE RECORDS SUMMARY | 2017-01-16 16:47 | External Medical Summary Rpt ---
Author Author , MARILYN Socrates MARILYN Address Unknown Phone [email or web address] Care Team Providers Care Customer Counter Representative Name Role Phone Giuseppe Daniels MD, Unavailable Unavailable Giuseppe Jones MD, Unavailable Unavailable Andrzej Jay MD, Unavailable Unavailable Deneen Jay MD Purpose Continuity of Care Document - 02-05-2013 through 2016 Problems Code Diagnosis DOS Provider Status 461.9 461.9 ACUTE 02-15-2013 [place] SINUSITIS [facility] 682.4 682.4 02-15-2013 [place] CELLULITIS [facility] V43.3 V43.3 HEART 02-15-2013 [place] VALVE [facility] 041.9 Bacterial [place] arthritis [facility] 716.96 Arthritis [facility] I25.10 ATHSCL HEART DISEASE OF [place] CORONARY ARTERY W/O ANG PCTRS I35.9 NONRHEUMATI C AORTIC VALVE DISORDER, UNSPECIFIED R55 SYNCOPE AND COLLAPSE Allergies, Adverse Reactions, Alerts Type Drug Allergy Adverse Reaction to Substance Substance Reaction Severity Penicillin Unknown Unknown SULFA (sulfonamide) Unknown Unknown Lidocaine S-[id number]-DENH/THROAT/ Severe BREATHING Penicillin V Unknown Unknown Trimethoprim Unknown Unknown Sulfamethoxazole Unknown Unknown Medications Na ND Rx Da Fi Fi Am Da Di Ph RX Ph St me C No te ll ll ou ys ag ar # ys at rm s nt no ma ic us Or Da si cy ia de te s n re d CL 00 10 0 No IN 40 -1 DA 94 9- Lo MY 05 20 ng CI 50 13 er N 3 15 Ac 0 ti MG ve /M L AD DV AN SO 00 10 0 No DI 40 -1 UM 97 9- Lo 10 20 ng CH 16 13 er LO 7 RI Ac DE ti ve 0. 9% SO LN KE 00 10 2 No TO 40 -1 RO 93 7- Lo LA 79 20 ng C 50 13 er 30 1 Ac MG ti /M ve L AL OX 00 10 2 No YC 40 -1 OD 60 7- Lo ON 51 20 ng E- 26 13 er AC 2 ET Ac AM ti IN ve OP HE N 5- 32 5 63 10 2 No PI 73 -1 RI 90 7- Lo N 43 20 ng 81 40 13 er 1 MG Ac ti CH ve EW AB LE TA BL ET CA 51 10 2 No RV 07 -1 ED 90 7- Lo IL 77 20 ng OL 12 13 er 0 3. Ac 12 ti 5 ve MG TA BL ET LO 00 10 2 No VE 07 -1 NO 50 7- Lo X 62 20 ng 40 04 13 er 1 MG Ac /0 ti .4 ve ML SY RI NG E PA 51 10 2 No AV 07 -1 90 7- Lo TA 45 20 ng TI 82 13 er N 0 SO Ac DI ti UM ve 20 MG TA B VA 00 10 2 No NC 40 -1 OM 96 7- Lo YC 53 20 ng IN 30 13 er 1 1 Ac GM ti ve AL SO 00 10 2 No DI 40 -1 UM 97 7- Lo 98 20 ng CH 30 13 er LO 9 RI Ac DE ti ve 0. 9% SO DAGMAR TI ON MA 00 10 0 No PA 90 -1 P 41 6- Lo 32 98 20 ng 5 26 13 er MG 1 Ac TA ti BL ve ET Mo 00 10 0 No rp 40 -1 hi 91 6- Lo ne 25 20 ng 83 13 er 4M 0 G/ Ac Ml ti ve Sy ri ng e LI 00 10 0 No DO 40 -1 CA 93 6- Lo IN 17 20 ng E 80 13 er 1% 1 -E Ac PI ti ve 1: 10 0, 00 0 CA 51 10 0 No RV 07 -1 ED 90 6- Lo IL 77 20 ng OL 12 13 er 0 3. Ac 12 ti 5 ve MG TA BL ET VA 00 10 0 No NC 40 -1 OM 96 6- Lo YC 53 20 ng IN 30 13 er 1 1 Ac GM ti ve AL Mo 00 10 3 No rp 40 -1 hi 91 6- Lo ne 25 20 ng 83 13 er 4M 0 G/ Ac Ml ti ve Sy ri ng e SO 00 10 1 No DI 40 -1 UM 97 6- Lo 98 20 ng CH 30 13 er LO 9 RI Ac DE ti ve 0. 9% SO DAGMAR TI ON SO 00 10 0 No DI 40 -1 UM 97 6- Lo 97 20 ng CH 20 13 er LO 8 RI Ac DE ti ve 0. 9% IR RI G. Mo 00 08 0 No rp 40 -2 hi 91 7- Lo ne 26 20 ng 06 13 er 8M 9 G/ Ac Ml ti ve Sy ri ng e HY [address] 40 -2 OC 60 7- Lo OD 36 20 ng ON 56 13 er -A 2 CE Ac TA ti NH ve NO PH EN 5- 32 5 VA 00 08 0 No NC 40 -2 OM 96 7- Lo YC 53 20 ng IN 30 13 er 1 1 Ac GM ti ve AL SO 00 08 0 No DI 40 -2 UM 97 7- Lo 98 20 ng CH 30 13 er LO 2 RI Ac DE ti ve 0. 9% SO DAGMAR TI ON Vital Signs 03-30-2013 19:48 Name Value Interpretat Reference Comment ion Range Body 98.4 [degF] Temperature BP 93 mm[Hg] Diastolic BP Systolic 147 mm[Hg] Heart 71 /min Rate/Pulse Respiratory 22 /min Rate 03-30-2013 16:00 Name Value Interpretat Reference Comment ion Range O2% 96 % 03-27-2013 19:49 Name Value Interpretat Reference Comment ion Range Weight 88.452 kg Measured 03-27-2013 16:00 Name Value Interpretat Reference Comment ion Range O2% 97 % 03-27-2013 12:30 Name Value Interpretat Reference Comment ion Range Body 98.3 [degF] Temperature BP 79 mm[Hg] Diastolic BP Systolic 202 mm[Hg] Heart 77 /min Rate/Pulse Respiratory 24 /min Rate Weight 195 [lb_av] Measured 02-15-2013 05:01 Name Value Interpretat Reference Comment ion Range Body 98 [degF] Temperature BP 64 mm[Hg] Diastolic BP Systolic 122 mm[Hg] Heart 70 /min Rate/Pulse O2% 94 % Respiratory 20 /min Rate 02-15-2013 01:42 Name Value Interpretat Reference Comment ion Range BP 76 mm[Hg] Diastolic BP Systolic 143 mm[Hg] Heart 77 /min Rate/Pulse O2% 98 % Respiratory 20 /min Rate 02-05-2013 23:51 Name Value Interpretat Reference Comment ion Range BP 70 mm[Hg] Diastolic BP Systolic 138 mm[Hg] Heart 62 /min Rate/Pulse O2% 98 % Respiratory 18 /min Rate 02-05-2013 20:30 Name Value Interpretat Reference Comment ion Range BP 73 mm[Hg] Diastolic BP Systolic 132 mm[Hg] Heart 72 /min Rate/Pulse O2% 98 % Respiratory 18 /min Rate Results Labs Lab Lab Date Result Refere Interp Status Commen Order Detail nces retati t Range on Vancomycin Trough SerPl-mCnc (03-29-2013 20:23) Vancomy 11.2 5.0-10. complet tuyet 013 mcg/mL 0 ed Trough 20:23 SerPl-m Cnc URIC ACID (03-29-2013 09:00) URIC 4.5 2.6-7.2 complet ACID 013 mg/dL ed 09:00 BODY FLUID CC/DIFF (03-27-2013 15:45) WBC # [id number] complet Fld 013 MM ed Manual 15:45 RBC # 3000 complet Fld 013 /mm3 ed Manual 15:45 Neuts 80 % complet Seg Fr 013 ed Fld 15:45 Manual Monocyt 20 % complet es Fr 013 ed Fld 15:45 Manual Crystals Fld Micro (03-27-2013 15:45) Crystal NO complet s Fld 013 CRYSTAL ed Micro 15:45 S SEEN BASIC METABOLIC PANEL (03-27-2013 12:55) Glucose 95 74-106 complet 013 mg/dL ed Bld-mCn 12:55 c BUN 15 7-18 complet Bld-mCn 013 mg/dL ed c 12:55 Creat 1.0 0.8-1.3 complet SerPl-m 013 mg/dL ed Cnc 12:55 ESTIMAT 93 50-200 complet ED 013 ML/MIN ed CREATIN 12:55 INE CLEARAN CE GFR 75 Greater complet (ESTIMA 013 ML/MIN than ed KYLEE) 12:55 60 Sodium 140 136-145 complet SerPl-s 013 mmoL/L ed Cnc 12:55 Potassi 3.8 3.5-5.1 complet um 013 mmoL/L ed SerPl-s 12:55 Cnc Chlorid 104 98-107 complet e 013 mmoL/L ed SerPl-s 12:55 Cnc CO2 10-16-2 27 21.0-32 complet SerPl-s 013 mmoL/L .0 ed Cnc 12:55 Calcium 10-16-2 8.9 8.5-10. complet 013 mg/dL 1 ed SerPl-m 12:55 Cnc URIC ACID (03-27-2013 12:55) URIC 10-16-2 5.8 2.6-7.2 complet ACID 013 mg/dL ed 12:55 C-REACTIVE PROTEIN (03-27-2013 12:55) C-REACT 10-16-2 1.8 0.0-0.9 complet JASMIN 013 MG/DL ed PROTEIN 12:55 CBC with AUTO DIFF (03-27-2013 12:55) WBC # 10-16-2 11.4 4.8-10. complet Bld 013 K/MM3 8 ed Auto 12:55 RBC # 10-16-2 4.38 4.6-6.2 complet Bld 013 M/mm3 ed Auto 12:55 Hgb 10-16-2 12.9 14.1-18 complet Bld-mCn 013 g/dL .0 ed c 12:55 Hct Fr 10-16-2 40.1 % 42.0-52 complet Bld 013 .0 ed 12:55 MCV RBC 10-16-2 91.5 fl 82.2-97 complet 013 .8 ed 12:55 MCH RBC 10-16-2 29.6 pg 27-31.2 complet Qn 013 ed Auto 12:55 MEAN 10-16-2 32.3 31.8-35 complet CORPUSC 013 g/dl .4 ed ULAR 12:55 HGB CONC RDW RBC 10-16-2 15.5 % 11.5-17 complet Auto 013 .5 ed 12:55 Platele 10-16-2 193 142-424 complet t Bld 013 K/mm3 ed Ql 12:55 Manual MEAN 10-16-2 7.9 fl 7.4-10. complet PLATELE 013 4 ed T 12:55 VOLUME Granulo 10-16-2 75.9 % 37.0-80 complet cytes 013 .0 ed Fr Bld 12:55 Auto LYMPH % 10-16-2 14.4 % 10-50 complet 013 ed 12:55 Monocyt 10-16-2 8.7 % 1.7-9.3 complet es Fr 013 ed Bld 12:55 Auto Eosinop 10-16-2 0.9 % 0.1-12. complet hil Fr 013 0 ed Bld 12:55 Auto Basophi 10-16-2 0.2 % 0.1-2.0 complet ls Fr 013 ed Bld 12:55 Auto Granulo 10-16-2 8.7 1.3-8.0 complet cytes # 013 K/mm3 ed Bld 12:55 Auto Lymphoc 10-16-2 1.6 0.7-4.5 complet ytes Fr 013 K/mm3 ed Bld 12:55 Auto Monocyt 10-16-2 1.0 0.1-1.0 complet es # 013 K/mm3 ed Bld 12:55 Auto Eosinop 10-16-2 0.1 0.0-0.4 complet hil # 013 K/mm3 ed Bld 12:55 Auto Basophi 10-16-2 0.0 0-0.2 complet ls # 013 K/MM3 ed Bld 12:55 Auto ESR Bld Qn 15M (03-27-2013 12:55) ESR Bld 10-16-2 33 0-20 complet Qn 15M 013 mm/hr ed 12:55 C-REACTIVE PROTEIN (03-27-2013 06:15) C-REACT 10-16-2 6.0 0.0-0.9 complet JASMIN 013 MG/DL ed PROTEIN 06:15 CBC with AUTO DIFF (03-27-2013 06:15) WBC # 10-16-2 9.0 4.8-10. complet Bld 013 K/MM3 8 ed Auto 06:15 RBC # 10-16-2 3.96 4.6-6.2 complet Bld 013 M/mm3 ed Auto 06:15 Hgb 10-16-2 11.5 14.1-18 complet Bld-mCn 013 g/dL .0 ed c 06:15 Hct Fr 10-16-2 36.7 % 42.0-52 complet Bld 013 .0 ed 06:15 MCV RBC 10-16-2 92.5 fl 82.2-97 complet 013 .8 ed 06:15 MCH RBC 10-16-2 29.0 pg 27-31.2 complet Qn 013 ed Auto 06:15 MEAN 10-16-2 31.3 31.8-35 complet CORPUSC 013 g/dl .4 ed ULAR 06:15 HGB CONC RDW RBC 10-16-2 15.1 % 11.5-17 complet Auto 013 .5 ed 06:15 Platele 10-16-2 167 142-424 complet t Bld 013 K/mm3 ed Ql 06:15 Manual MEAN 10-16-2 7.6 fl 7.4-10. complet PLATELE 013 4 ed T 06:15 VOLUME Granulo 10-16-2 72.5 % 37.0-80 complet cytes 013 .0 ed Fr Bld 06:15 Auto LYMPH % 10-16-2 14.4 % 10-50 complet 013 ed 06:15 Monocyt 10-16-2 12.4 % 1.7-9.3 complet es Fr 013 ed Bld 06:15 Auto Eosinop 10-16-2 0.6 % 0.1-12. complet hil Fr 013 0 ed Bld 06:15 Auto Basophi 10-16-2 0.2 % 0.1-2.0 complet ls Fr 013 ed Bld 06:15 Auto Granulo 10-16-2 6.5 1.3-8.0 complet cytes # 013 K/mm3 ed Bld 06:15 Auto Lymphoc 10-16-2 1.3 0.7-4.5 complet ytes Fr 013 K/mm3 ed Bld 06:15 Auto Monocyt 10-16-2 1.1 0.1-1.0 complet es # 013 K/mm3 ed Bld 06:15 Auto Eosinop 10-16-2 0.1 0.0-0.4 complet hil # 013 K/mm3 ed Bld 06:15 Auto Basophi 10-16-2 0.0 0-0.2 complet ls # 013 K/MM3 ed Bld 06:15 Auto ESR Bld Qn 15M (03-27-2013 06:15) ESR Bld 1016-2 39 0-20 complet Qn 15M 013 mm/hr ed 06:15 URINALYSIS/COMPLETE (02-15-2013 02:30) URINE YELLOW YELLOW complet COLOR 013 ed 02:30 URINE CLEAR CLEAR complet APPEARA 013 ed NCE 02:30 URINE NEGATIV NEG complet GLUCOSE 013 E ed - 02:30 DIPSTIC K URINE NEGATIV NEG complet BILIRUB 013 E ed IN - 02:30 DIPSTIC K URINE NEGATIV NEG complet KETONE 013 E mg/dL ed 02:30 URINE 1.015 1.005-1 complet SPECIFI 013 UNK .030 ed C 02:30 GRAVITY URINE NEGATIV NEG complet BLOOD 013 E ed 02:30 URINE 7.0 UNK 5.0-8.5 complet PH 013 ed 02:30 URINE NEGATIV NEG complet PROTEIN 013 E mg/dL ed - 02:30 DIPSTIC K URINE 1.0 NEG complet UROBILI 013 E.U./dL ed NOGEN - 02:30 DIPSTIC K URINE NEGATIV NEG complet NITRATE 013 E ed - 02:30 DIPSTIC K URINE NEGATIV NEG complet LEUK 013 E ed ESTERAS 02:30 E URINE OCC 0 complet RBC 013 rbc/hpf ed 02:30 URINE OCC O complet WBC 013 wbc/hpf ed 02:30 URINE OCC OCC complet SQUAMOU 013 #/hpf ed S CELLS 02:30 URINE TRACE O complet BACTERI 013 ed A 02:30 URINE 1+ NONE complet MUCUS 013 ed 02:30 COMPREHENSIVE METABOLIC PANEL (02-15-2013 01:15) Glucose 104 74-106 complet 013 mg/dL ed Bld-mCn 01:15 c BUN 16 7-18 complet Bld-mCn 013 mg/dL ed c 01:15 Creat 1.1 0.8-1.3 complet SerPl-m 013 mg/dL ed Cnc 01:15 ESTIMAT 87 50-200 complet ED 013 ML/MIN ed CREATIN 01:15 INE CLEARAN CE GFR 67 Greater complet (ESTIMA 013 ML/MIN than ed KYLEE) 01:15 60 Sodium 141 136-145 complet SerPl-s 013 mmoL/L ed Cnc 01:15 Potassi 4.1 3.5-5.1 complet um 013 mmoL/L ed SerPl-s 01:15 Cnc Chlorid 105 98-107 complet e 013 mmoL/L ed SerPl-s 01:15 Cnc CO2 28 21.0-32 complet SerPl-s 013 mmoL/L .0 ed Cnc 01:15 Calcium 8.4 8.5-10. complet 013 mg/dL 1 ed SerPl-m 01:15 Cnc Prot 02-15- 6.2 6.4-8.2 complet SerPl-m 013 gm/dL ed Cnc 01:15 Albumin 2.7 3.4-5.0 complet 013 gm/dL ed SerPl-m 01:15 Cnc Globuli 3.5 1.3-3.2 complet n 013 gm/dL ed Ser-mCn 01:15 c Albumin 0.8 UNK 1.1-1.8 complet /Glob 013 ed SerPl-m 01:15 Rto Bilirub 0.3 0.2-1.0 complet 013 mg/dL ed SerPl-m 01:15 Cnc AST 02-15- 9 U/L 15-37 complet SerPl-c 013 ed Cnc 01:15 ALT 02-15- 33 U/L 30-65 complet SerPl-c 013 ed Cnc 01:15 ALP 81 U/L 50-136 complet SerPl-c 013 ed Cnc 01:15 CBC with AUTO DIFF (02-15-2013 01:15) WBC # 06-2 7.5 4.8-10. complet Bld 013 K/MM3 8 ed Auto 01:15 RBC # 06-2 4.03 4.6-6.2 complet Bld 013 M/mm3 ed Auto 01:15 Hgb 02-15-2 12.0 14.1-18 complet Bld-mCn 013 g/dL .0 ed c 01:15 Hct Fr 36.3 % 42.0-52 complet Bld 013 .0 ed 01:15 MCV RBC 90.0 fl 82.2-97 complet 013 .8 ed 01:15 MCH RBC 29.6 pg 27-31.2 complet Qn 013 ed Auto 01:15 MEAN -06-2 32.9 31.8-35 complet CORPUSC 013 g/dl .4 ed ULAR 01:15 HGB CONC RDW RBC -06-2 14.7 % 11.5-17 complet Auto 013 .5 ed 01:15 Platele -06-2 352 142-424 complet t Bld 013 K/mm3 ed Ql 01:15 Manual MEAN 06-2 7.3 fl 7.4-10. complet PLATELE 013 4 ed T 01:15 VOLUME Granulo -06-2 65.8 % 37.0-80 complet cytes 013 .0 ed Fr Bld 01:15 Auto LYMPH % -06-2 22.0 % 10-50 complet 013 ed 01:15 Monocyt 09-06-2 9.6 % 1.7-9.3 complet es Fr 013 ed Bld 01:15 Auto Eosinop -06-2 2.2 % 0.1-12. complet hil Fr 013 0 ed Bld 01:15 Auto Basophi 09-06-2 0.3 % 0.1-2.0 complet ls Fr 013 ed Bld 01:15 Auto Granulo 09-06-2 5.0 1.3-8.0 complet cytes # 013 K/mm3 ed Bld 01:15 Auto Lymphoc -06-2 1.7 0.7-4.5 complet ytes Fr 013 K/mm3 ed Bld 01:15 Auto Monocyt 09-06-2 0.7 0.1-1.0 complet es # 013 K/mm3 ed Bld 01:15 Auto Eosinop 09-06-2 0.2 0.0-0.4 complet hil # 013 K/mm3 ed Bld 01:15 Auto Basophi 09-06-2 0.0 0-0.2 complet ls # 013 K/MM3 ed Bld 01:15 Auto ESR Bld Qn 15M (02-15-2013 01:15) ESR Bld 06-2 25 0-20 complet Qn 15M 013 mm/hr ed 01:15 BASIC METABOLIC PANEL (02-05-2013 20:15) Glucose 105 74-106 complet 013 mg/dL ed Bld-mCn 20:15 c BUN 08-27-2 14 7-18 complet Bld-mCn 013 mg/dL ed c 20:15 Creat 2 1.0 0.8-1.3 complet SerPl-m 013 mg/dL ed Cnc 20:15 ESTIMAT 93 50-200 complet ED 013 ML/MIN ed CREATIN 20:15 INE CLEARAN CE GFR 75 Greater complet (ESTIMA 013 ML/MIN than ed KYLEE) 20:15 60 Sodium 141 136-145 complet SerPl-s 013 mmoL/L ed Cnc 20:15 Potassi 3.8 3.5-5.1 complet um 013 mmoL/L ed SerPl-s 20:15 Cnc Chlorid 106 98-107 complet e 013 mmoL/L ed SerPl-s 20:15 Cnc CO2 26 21.0-32 complet SerPl-s 013 mmoL/L .0 ed Cnc 20:15 Calcium 8.8 8.5-10. complet 013 mg/dL 1 ed SerPl-m 20:15 Cnc CBC with AUTO DIFF (02-05-2013 20:15) WBC # 02-05-2 11.2 4.8-10. complet Bld 013 K/MM3 8 ed Auto 20:15 RBC # 02-05-2 4.35 4.6-6.2 complet Bld 013 M/mm3 ed Auto 20:15 Hgb 2 12.9 14.1-18 complet Bld-mCn 013 g/dL .0 ed c 20:15 Hct Fr 38.5 % 42.0-52 complet Bld 013 .0 ed 20:15 MCV RBC 88.4 fl 82.2-97 complet 013 .8 ed 20:15 MCH RBC 02-05-2 29.7 pg 27-31.2 complet Qn 013 ed Auto 20:15 MEAN 33.5 31.8-35 complet CORPUSC 013 g/dl .4 ed ULAR 20:15 HGB CONC RDW RBC 02-05- 14.4 % 11.5-17 complet Auto 013 .5 ed 20:15 Platele 202 142-424 complet t Bld 013 K/mm3 ed Ql 20:15 Manual MEAN 02-05-2 7.3 fl 7.4-10. complet PLATELE 013 4 ed T 20:15 VOLUME Granulo 02-05-2 79.5 % 37.0-80 complet cytes 013 .0 ed Fr Bld 20:15 Auto LYMPH % -27-2 12.4 % 10-50 complet 013 ed 20:15 Monocyt -27-2 7.4 % 1.7-9.3 complet es Fr 013 ed Bld 20:15 Auto Eosinop -27-2 0.5 % 0.1-12. complet hil Fr 013 0 ed Bld 20:15 Auto Basophi -27-2 0.2 % 0.1-2.0 complet ls Fr 013 ed Bld 20:15 Auto Granulo -27-2 8.9 1.3-8.0 complet cytes # 013 K/mm3 ed Bld 20:15 Auto Lymphoc -27-2 1.4 0.7-4.5 complet ytes Fr 013 K/mm3 ed Bld 20:15 Auto Monocyt -27-2 0.8 0.1-1.0 complet es # 013 K/mm3 ed Bld 20:15 Auto Eosinop -27-2 0.1 0.0-0.4 complet hil # 013 K/mm3 ed Bld 20:15 Auto Basophi -27-2 0.0 0-0.2 complet ls # 013 K/MM3 ed Bld 20:15 Auto Procedures Procedure DOS Code Location Performer Comment DESTRUC-A 80.87 Giuseppe Daniels MD LESION NEC ARTHROCEN 81.91 Giuseppe Daniels MD Encounters Encounter Start End Date Code Location Performer Type Date Inpatient IMP (IN) 3 12:30 3 19:50 Emergency EDEN Jones MD (ER) 3 01:02 3 05:09 [facility] Emergency EDEN Sandy MD (ER) 3 20:15 3 23:52 [facility]
--- OUTSIDE RECORDS SUMMARY | 2017-01-16 16:47 | External Medical Summary Rpt ---
Demographics Preferred Language Slovak Marital Status Unknown [employer] Affiliation Unknown Race Unknown Ethnic Group Unknown Author Author MARILYN Address Unknown Phone Immunization No patient found.
--- OUTSIDE RECORDS SUMMARY | 2017-01-16 16:47 | External Medical Summary Rpt ---
Author Author , MARILYN Socrates MARILYN Address Unknown Phone [email or web address] Care Team Providers Care Help Desk Analyst Name Role Phone Giuseppe Daniels MD, Unavailable Unavailable Giuseppe Jones MD, Unavailable Unavailable Andrzej Jay MD, Unavailable Unavailable Deneen Jay MD Purpose Continuity of Care Document - 02-05-2013 through 2016 Problems Code Diagnosis DOS Provider Status 461.9 461.9 ACUTE 02-15-2013 [place] SINUSITIS [facility] 682.4 682.4 02-15-2013 [place] CELLULITIS [facility] V43.3 V43.3 HEART 02-15-2013 [place] VALVE [facility] 041.9 Bacterial [place] arthritis [facility] 716.96 Arthritis [facility] I25.10 ATHSCL HEART DISEASE OF [place] CORONARY ARTERY W/O ANG PCTRS I35.9 NONRHEUMATI C AORTIC VALVE DISORDER, UNSPECIFIED R55 SYNCOPE AND COLLAPSE Allergies, Adverse Reactions, Alerts Type Drug Allergy Adverse Reaction to Substance Substance Reaction Severity Penicillin Unknown Unknown SULFA (sulfonamide) Unknown Unknown Lidocaine W-VKCCOC-FPWA/THROAT/ Severe BREATHING Penicillin V Unknown Unknown Trimethoprim [...] .4 ve ML SY RI NG E IN 51 10 2 No AV 07 -1 [...] er -A 2 CE Ac TA ti TX ve NO PH EN 5- 32 5 [...] BODY FLUID CC/DIFF (03-27-2013 15:45) WBC # [id number] complet Fld 013 MM ed Manual 15:45 [...] Jones MD (ER) 3 01:02 3 05:09 [facility] EDEN Sandy MD (ER) 3 20:15 3 23:52 [facility]
--- OUTSIDE RECORDS SUMMARY | 2017-01-16 16:47 | External Medical Summary Rpt ---
Author Author [employer] Organization [employer] Address Unknown Phone Unavailable Purpose Continuity of Care Document - through 2016
--- OUTSIDE RECORDS SUMMARY | 2017-01-16 16:48 | External Medical Summary Rpt ---
Author Author MARILYN Grissom, MARILYN [employer] Address Unknown Phone Unavailable Results Cardiac enzymes Observa Value Referen Units Interpr Notes Date tion ce etation Range Creatine 0 - 4.0 U/L Normal No Jan 16 kinase.MB informati 2017 3:15 /Creatine on in AM source kinase.to data rachael [Ratio] in Serum or Plasma Creatine 0.0 - 3.6 ng/mL No No Jan 16 kinase.MB informati informati 2017 3:15 on in on in AM [Mass/vol source source ume] in data data Serum or Plasma Creatine 39 - 308 U/L Normal No Jan 16 kinase informati 2017 3:15 [Enzymati on in AM c source activity/ data volume] in Serum or Plasma Troponin 0.00 - ng/mL Normal 0.04 - Jan 16 I.cardiac 0.06 0.49 IS 2017 3:15 AN AM [Mass/vol INDETERMI ume] in NANT Serum or ZONEAnd Plasma can be consisten t with the following diseases: Trauma Criticall y ill patients Mcdermott >30% TBSACHF Hypothyro idism Amyloidos isHyperte nsion Myocardit is SepsisHyp otension Rhabdomyo lysis Vital exhaust.P ostop surgery Pulmonary embolism CVARenal failure Acute neurologi annette disease Atrial fib. Cardiac enzymes Observa Value Referen Units Interpr Notes Date ti ce etation Range Creatine 0 - 4.0 U/L Normal No Jan 15 kinase.MB informati 2017 9:05 /Creatine on in PM source kinase.to data rachael [Ratio] in Serum or Plasma Creatine 0.0 - 3.6 ng/mL No No Jan 6 kinase.MB informati informati 2017 9:05 on in on in PM [Mass/vol source source ume] in data data Serum or Plasma Creatine 39 - 308 U/L Normal No Jan 6 kinase informati 2017 9:05 [Enzymati on in PM c source activity/ data volume] in Serum or Plasma Troponin 0.00 - ng/mL Normal No Jan 6 I.cardiac 0.06 informati 2017 9:05 on in PM [Mass/vol source ume] in data Serum or Plasma Troponin I.cardiac [Mass/volume] in Serum or Plasma Observa Value Referen Units Interpr Notes Date tion ce etation Range Troponin 0.00 - ng/mL High 0.04 - Jan 6 I.cardiac 0.06 0.49 IS 2017 2:40 AN PM [Mass/vol INDETERMI ume] in NANT Serum or ZONEAnd Plasma can be consisten t with the following diseases: Trauma Criticall y ill patients [place] >30% TBSACHF Hypothyro idism Amyloidos isHyperte nsion Myocardit is SepsisHyp otension Rhabdomyo lysis Vital exhaust.P ostop surgery Pulmonary embolism CVARenal failure Acute neurologi annette disease Atrial fib. Cardiac enzymes Observa Value Referen Units Interpr Notes Date tion ce etation Range Creatine 0 - 4.0 U/L Normal No Jan 15 kinase.MB informati 2017 /Creatine on in 11:56 AM source kinase.to data rachael [Ratio] in Serum or Plasma Creatine 0.0 - 3.6 ng/mL Normal No Jan 15 kinase.MB informati 2017 on in 11:56 AM [Mass/vol source ume] in data Serum or Plasma Creatine 39 - 308 U/L Normal No Jan 15 kinase informati 2017 [Enzymati on in 11:56 AM c source activity/ data volume] in Serum or Plasma Troponin 0.00 - ng/mL Normal 0.04 - Jan 15 I.cardiac 0.06 0.49 IS 2017 AN 11:56 AM [Mass/vol INDETERMI ume] in NANT Serum or ZONEAnd Plasma can be consisten t with the following diseases: Trauma Criticall y ill patients [place] >30% TBSACHF Hypothyro idism Amyloidos isHyperte nsion Myocardit is SepsisHyp otension Rhabdomyo lysis Vital exhaust.P ostop surgery Pulmonary embolism CVARenal failure Acute neurologi annette disease Atrial fib. Comprehensive metabolic 2000 panel in Serum or Plasma Observa Value Referen Units Interpr Notes Date tion ce etation Range Albumin/G 1.1 - 1.8 No Low No Jan 15 lobulin informati informati 2017 [Mass on in on in 11:56 AM ratio] in source source Serum or data data Plasma Albumin 3.4 - 5.0 gm/dL Low No Jan 6 [Mass/vol informati 2017 ume] in on in 11:56 AM Serum or source Plasma data Alkaline 46 - 116 U/L Normal No Jan 15 phosphata informati 2017 se on in 11:56 AM [Enzymati source c data activity/ volume] in Serum or Plasma Bilirubin 0.2 - 1.0 mg/dL Normal No Jan 15 .total informati 2016 [Mass/vol on in 11:56 AM ume] in source Serum or data Plasma Urea 7 - 18 mg/dL Normal No Jan 15 nitrogen informati 2017 [Mass/vol on in 11:56 AM ume] in source Serum or data Plasma Calcium 8.5 - mg/dL Normal No Jan 15 [Mass/vol 10.1 informati 2016 ume] in on in 11:56 AM Serum or source Plasma data Chloride 98 - 107 mmoL/L Normal No Jan 15 [Moles/vo informati 2017 lume] in on in 11:56 AM Serum or source Plasma data Carbon 21.0 - mmoL/L Normal No Jan 15 dioxide, 32.0 informati 2017 total on in 11:56 AM [Moles/vo source lume] in data Serum or Plasma Creatinin 0.70 - mg/dL Normal No Jan 15 e 1.30 informati 2016 [Mass/vol on in 11:56 AM ume] in source Serum or data Plasma Creatinin 50 - 200 ML/MIN Normal No Jan 15 e renal informati 2017 clearance on in 11:56 AM source predicted data by Cockcroft -Gault formula Estimated >60 ML/MIN No REFERENCE Jan 15 informati RANGE: 2017 glomerula on in >60 11:56 AM r source ML/MIN/1. filtratio data 73 SQUARE n rate METERSIf (GF this patient is -A merican, then multiply theresult by 1.210. Globulin 1.3 - 3.2 gm/dL High No Jan 15 [Mass/vol informati 2017 ume] in on in 11:56 AM Serum source data Glucose 74 - 106 mg/dL High No Jan 15 [Mass/vol informati 2017 ume] in on in 11:56 AM Serum or source Plasma data Potassium 3.5 - 5.1 mmoL/L Normal No Jan 15 informati 2017 [Moles/vo on in 11:56 AM lume] in source Serum or data Plasma Sodium 136 - 145 mmoL/L Normal No Jan 15 [Moles/vo informati 2017 lume] in on in 11:56 AM Serum or source Plasma data Aspartate 15 - 37 U/L Normal No Jan 152016 aminotran on in 11:56 AM sferase source [Enzymati data c activity/ volume] in Serum or Plasma Alanine 12 - 78 U/L Normal No Jan 15 aminotran 2016 sferase on in 11:56 AM [Enzymati source c data activity/ volume] in Serum or Plasma Protein 6.4 - 8.2 gm/dL Normal No Jan 15 [Mass/vol 2016 ume] in on in 11:56 AM Serum or source Plasma data CBC W Auto Differential panel in Blood Observa Value Referen Units Interpr Notes Date tion ce etation Range Basophils 0 - 0.2 K/MM3 Normal No Jan 152016 [#/volume on in 11:56 AM ] in source Blood by data Automated count Basophils 0.1 - 2.0 % Normal No Jan 15 /2016 leukocyte on in 11:56 AM s in source Blood by data Automated count Eosinophi 0.0 - 0.4 K/mm3 Normal No Jan 15 ls 2016 [#/volume on in 11:56 AM ] in source Blood by data Automated count Eosinophi 0.1 - % Normal No Jan 15 ls/100 12.0 inform2016 leukocyte on in 11:56 AM s in source Blood by data Automated count Granulocy 1.3 - 8.0 K/mm3 Normal No Jan 15 greg 2016 [#/volume on in 11:56 AM ] in source Blood by data Automated count Granulocy 37.0 - % Normal No Jan 15 greg/100 80.0 2016 leukocyte on in 11:56 AM s in source Blood by data Automated count Hematocri 42.0 - % Low No Jan 15 t [Volume 52.0 2016 on in 11:56 AM Fraction] source of Blood data Hemoglobi 14.1 - g/dL Low No Jan 15 n 18.0 2016 [Mass/vol on in 11:56 AM ume] in source Blood data Lymphocyt 0.7 - 4.5 K/mm3 Normal No Jan 15 es 2016 [#/volume on in 11:56 AM ] in source Unspecifi data ed specimen by Automated count Lymphocyt 10 - 50 % Normal No Jan 15 es 2016 [#/volume on in 11:56 AM ] in source Unspecifi data ed specimen by Automated count Erythrocy 27 - 31.2 pg Normal No Jan 15 te mean inform2016 corpuscul on in 11:56 AM ar source hemoglobi data n [Entitic mass] Erythrocy 31.8 - g/dl Normal No Jan 15 te mean 35.4 inform2016 corpuscul on in 11:56 AM ar source hemoglobi data n concentra tion [Mass/vol ume] by Automated count Erythrocy 82.2 - fl Normal No Jan 15 te mean 97.8 informati 2016 corpuscul on in 11:56 AM ar volume source [Entitic data volume] by Automated count Monocytes 0.1 - 1.0 K/mm3 Normal No Jan 15 informati 2016 [#/volume on in 11:56 AM ] in source Blood by data Automated count Monocytes 1.7 - 9.3 % Normal No Jan 15 /100 informati 2017 leukocyte on in 11:56 AM s in source Blood by data Automated count Platelet 7.4 - fl Normal No Jan 15 mean 10.4 informati 2016 volume on in 11:56 AM [Entitic source volume] data in Blood by Automated count Platelets 142 - 424 K/mm3 No No Jan 15 informati informati 2016 [#/volume on in on in 11:56 AM ] in source source Blood data data Erythrocy 4.6 - 6.2 M/mm3 Low No Jan 15 greg informati 2016 [#/volume on in 11:56 AM ] in source Amniotic data fluid Erythrocy 11.5 - % Normal No Jan 15 te 17.5 informati 2016 distribut on in 11:56 AM ion width source [Entitic data volume] by Automated count Leukocyte 4.8 - K/MM3 Normal No Jan 15 s 10.8 informati 2016 [#/volume on in 11:56 AM ] in source Blood data
--- OUTSIDE RECORDS SUMMARY | 2017-01-16 16:48 | External Medical Summary Rpt ---
Author Author MARILYN Grissom, MARILYN [employer] Organization [employer] Address Unknown Phone Unavailable [...]
--- OUTSIDE RECORDS SUMMARY | 2017-01-16 18:39 | External Medical Summary Rpt ---
Author Author , MARILYN Crowell MARILYN Address Unknown Phone [email or web address] Team Providers Care Accounts Receivable Coordinator Name Role Phone Giuseppe Daniels MD, Unavailable Unavailable Giuseppe Jones MD, Unavailable Unavailable Andrzej Jay MD, Unavailable Unavailable Deneen Jay MD Purpose Continuity of Care Document - 02-05-2013 through 2016 Problems Code Diagnosis DOS Provider Status 461.9 461.9 ACUTE 02-15-2013 [place] SINUSITIS [facility] 682.4 682.4 02-15-2013 [place] CELLULITIS [facility] V43.3 V43.3 HEART 02-15-2013 [place] VALVE [facility] 041.9 Bacterial [place] arthritis [facility] 716.96 [address]th[address] [facility] Allergies, Adverse Reactions, Alerts Type Drug Allergy Adverse Reaction to Substance Substance Reaction Severity Penicillin Unknown Unknown SULFA (sulfonamide) Unknown Unknown Lidocaine Y-NSGYMR-NEGD/THROAT/ Severe BREATHING Penicillin V Unknown Unknown Trimethoprim [...] .4 ve ML SY RI NG E UT 51 10 2 No AV 07 -1 [...] er -A 2 CE Ac TA ti MO ve NO PH EN 5- 32 5 [...] BODY FLUID CC/DIFF (03-27-2013 15:45) WBC # [id number] complet Fld 013 MM ed Manual 15:45 [...] 013 mmoL/L ed SerPl-s 12:55 Cnc CO2 27 21.0-32 complet SerPl-s 013 mmoL/L .0 [...] Bld Qn 15M (03-27-2013 06:15) ESR Bld 10-16-2 39 0-20 complet Qn 15M 013 mm/hr [...] 013 mmoL/L ed SerPl-s 01:15 Cnc CO2 02-15-2 28 21.0-32 complet SerPl-s 013 mmoL/L .0 ed Cnc 01:15 Calcium 06-2 8.4 8.5-10. complet 013 mg/dL 1 ed SerPl-m 01:15 Cnc Prot 02-15-2 6.2 6.4-8.2 complet SerPl-m 013 gm/dL ed Cnc 01:15 Albumin 02-15-2 2.7 3.4-5.0 complet 013 gm/dL ed SerPl-m 01:15 Cnc Globuli 02-15-2 3.5 1.3-3.2 complet n 013 gm/dL ed Ser-mCn 01:15 c Albumin 02-15-2 0.8 UNK 1.1-1.8 complet /Glob 013 ed SerPl-m 01:15 Rto Bilirub 2 0.3 0.2-1.0 complet 013 mg/dL ed SerPl-m 01:15 Cnc AST 02-15-2 9 U/L 15-37 complet SerPl-c 013 ed Cnc 01:15 ALT 02-15-2 33 U/L 30-65 complet SerPl-c 013 ed Cnc 01:15 ALP 02-15-2 81 U/L 50-136 complet SerPl-c 013 ed Cnc 01:15 CBC with AUTO DIFF (02-15-2013 01:15) WBC # 06-2 7.5 4.8-10. complet Bld 013 K/MM3 8 ed Auto 01:15 RBC # 06-2 4.03 4.6-6.2 complet Bld 013 M/mm3 ed Auto 01:15 Hgb 02-15-2 12.0 14.1-18 complet Bld-mCn 013 g/dL .0 ed c 01:15 Hct Fr 02-15-2 36.3 % 42.0-52 complet Bld 013 .0 ed 01:15 MCV RBC 02-15- 90.0 fl 82.2-97 complet 013 .8 ed 01:15 MCH RBC 02-15- 29.6 pg 27-31.2 complet Qn 013 ed Auto 01:15 MEAN 02-15- 32.9 31.8-35 complet CORPUSC 013 g/dl .4 ed ULAR 01:15 HGB CONC RDW RBC -06-2 14.7 % 11.5-17 complet Auto 013 .5 ed 01:15 Platele 09-06-2 352 142-424 complet t Bld 013 K/mm3 ed Ql 01:15 Manual MEAN -06-2 7.3 fl 7.4-10. complet PLATELE 013 4 ed T 01:15 VOLUME Granulo -06-2 65.8 % 37.0-80 complet cytes 013 .0 ed Fr Bld 01:15 Auto LYMPH % -06-2 22.0 % 10-50 complet 013 ed 01:15 Monocyt 09-06-2 9.6 % 1.7-9.3 complet es Fr 013 ed Bld 01:15 Auto Eosinop 09-06-2 2.2 % 0.1-12. complet hil Fr 013 0 ed Bld 01:15 Auto Basophi -06-2 0.3 % 0.1-2.0 complet ls Fr 013 ed Bld 01:15 Auto Granulo -06-2 5.0 1.3-8.0 complet cytes # 013 K/mm3 ed Bld 01:15 Auto Lymphoc -06-2 1.7 0.7-4.5 complet ytes Fr 013 K/mm3 ed Bld 01:15 Auto Monocyt 09-06-2 0.7 0.1-1.0 complet es # 013 K/mm3 ed Bld 01:15 Auto Eosinop -06-2 0.2 0.0-0.4 complet hil # 013 K/mm3 ed Bld 01:15 Auto Basophi 09-06-2 0.0 0-0.2 complet ls # 013 K/MM3 ed Bld 01:15 Auto ESR Bld Qn 15M (02-15-2013 01:15) ESR Bld 02-15-2 25 0-20 complet Qn 15M 013 mm/hr ed 01:15 BASIC METABOLIC PANEL (02-05-2013 20:15) Glucose 105 74-106 complet 013 mg/dL ed Bld-mCn 20:15 c BUN 14 7-18 complet Bld-mCn 013 mg/dL ed c 20:15 Creat 2 1.0 0.8-1.3 complet SerPl-m 013 mg/dL ed Cnc 20:15 ESTIMAT 02-05-2 93 50-200 complet ED 013 ML/MIN ed CREATIN 20:15 INE CLEARAN CE GFR 2 75 Greater complet (ESTIMA 013 ML/MIN than ed KYLEE) 20:15 60 Sodium 02-05-2 141 136-145 complet SerPl-s 013 mmoL/L ed Cnc 20:15 Potassi 2 3.8 3.5-5.1 complet um 013 mmoL/L ed SerPl-s 20:15 Cnc Chlorid 02-05-2 106 98-107 complet e 013 mmoL/L ed SerPl-s 20:15 Cnc CO2 02-05-2 26 21.0-32 complet SerPl-s 013 mmoL/L .0 ed Cnc 20:15 Calcium 2 8.8 8.5-10. complet 013 mg/dL 1 ed SerPl-m 20:15 Cnc CBC with AUTO DIFF (02-05-2013 20:15) WBC # 02-05-2 11.2 4.8-10. complet Bld 013 K/MM3 8 ed Auto 20:15 RBC # 02-05-2 4.35 4.6-6.2 complet Bld 013 M/mm3 ed Auto 20:15 Hgb 02-05-2 12.9 14.1-18 complet Bld-mCn 013 g/dL .0 ed c 20:15 Hct Fr 02-05-2 38.5 % 42.0-52 complet Bld 013 .0 ed 20:15 MCV RBC 02-05-2 88.4 fl 82.2-97 complet 013 .8 ed 20:15 MCH RBC 02-05-2 29.7 pg 27-31.2 complet Qn 013 ed Auto 20:15 MEAN 02-05-2 33.5 31.8-35 complet CORPUSC 013 g/dl .4 ed ULAR 20:15 HGB CONC RDW RBC 02-05-2 14.4 % 11.5-17 complet Auto 013 .5 ed 20:15 Platele 02-05-2 202 142-424 complet t Bld 013 K/mm3 ed Ql 20:15 Manual MEAN 02-05-2 7.3 fl 7.4-10. complet PLATELE 013 4 ed T 20:15 VOLUME Granulo 2 79.5 % 37.0-80 complet cytes 013 .0 ed Fr Bld 20:15 Auto LYMPH % 08-27-2 12.4 % 10-50 complet 013 ed 20:15 Monocyt 08-27-2 7.4 % 1.7-9.3 complet es Fr 013 ed Bld 20:15 Auto Eosinop 08-27-2 0.5 % 0.1-12. complet hil Fr 013 0 ed Bld 20:15 Auto Basophi 08-27-2 0.2 % 0.1-2.0 complet ls Fr 013 ed Bld 20:15 Auto Granulo 08-27-2 8.9 1.3-8.0 complet cytes # 013 K/mm3 ed Bld 20:15 Auto Lymphoc -27-2 1.4 0.7-4.5 complet ytes Fr 013 K/mm3 ed Bld 20:15 Auto Monocyt -27-2 0.8 0.1-1.0 complet es # 013 K/mm3 ed Bld 20:15 Auto Eosinop -27-2 0.1 0.0-0.4 complet hil # 013 K/mm3 ed Bld 20:15 Auto Basophi 08-27-2 0.0 0-0.2 complet ls # 013 K/MM3 ed Bld 20:15 Auto Procedures Procedure DOS Code Location Performer Comment DESTRUC-A 80.87 Giuseppe Daniels MD LESION NEC ARTHROCEN 81.91 Giuseppe Daniels MD Encounters Encounter Start End Date Code Location Performer Type Date Inpatient IMP (IN) 3 12:30 3 19:50 Emergency EDEN Jones MD (ER) 3 01:02 3 05:09 [facility] Emergency EDEN Sandy MD (ER) 3 20:15 3 23:52 [facility]
--- OUTSIDE RECORDS SUMMARY | 2017-01-16 18:39 | External Medical Summary Rpt ---
Author Author , MARILYN Crowell MARILYN Address Unknown Phone [email or web address] Team Providers Care Assembler [employer]urbine Name Role Phone Giuseppe Daniels MD, Unavailable Unavailable Giuseppe Jones MD, Unavailable Unavailable Andrzej Jay MD, Unavailable Unavailable Deneen Jay MD Purpose Continuity of Care Document - 02-05-2013 through 2016 Problems Code Diagnosis DOS Provider Status 461.9 461.9 ACUTE 02-15-2013 [place] SINUSITIS [facility] 682.4 682.4 02-15-2013 [place] CELLULITIS [facility] V43.3 V43.3 HEART 02-15-2013 [place] VALVE 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 [facility] 716.96 Arthritis [facility] Allergies, Adverse Reactions, Alerts Type Drug Allergy Adverse Reaction to Substance Substance Reaction Severity Penicillin Unknown Unknown SULFA (sulfonamide) Unknown Unknown Lidocaine E-XDHLDD-FVCL/THROAT/ Severe BREATHING Penicillin V Unknown Unknown Trimethoprim [...] .4 ve ML SY RI NG E MO 51 10 2 No AV 07 -1 [...] er -A 2 CE Ac TA ti PA ve NO PH EN 5- 32 5 [...] BODY FLUID CC/DIFF (03-27-2013 15:45) WBC # [id number] complet Fld 013 MM ed Manual 15:45 [...] Jones MD (ER) 3 01:02 3 05:09 [facility] Emergency EDEN Sandy MD (ER) 3 20:15 3 23:52 [facility]
--- OUTSIDE RECORDS SUMMARY | 2017-01-16 18:40 | External Medical Summary Rpt ---
Demographics Preferred Language Rwandan Marital Status Unknown Restorationism Affiliation Unknown Race Unknown Ethnic Group Unknown Author Author MARILYN Address Unknown Phone Immunization No patient found.
--- OUTSIDE RECORDS SUMMARY | 2017-01-16 18:40 | External Medical Summary Rpt ---
Demographics Preferred Language Lithuanian Marital Status Unknown Judaism Affiliation Unknown Race Unknown Ethnic Group Unknown Author Author MARILYN Address Unknown Phone Immunization No patient found.
--- OUTSIDE RECORDS SUMMARY | 2017-01-16 18:40 | External Medical Summary Rpt ---
Author Author MARILYN Grissom, MARILYN [employer] Address Unknown Phone Unavailable [...]
--- OUTSIDE RECORDS SUMMARY | 2017-01-16 18:40 | External Medical Summary Rpt ---
Author Author MARILYN Grissom, MARILYN [employer] Organization [employer] Address Unknown Phone Unavailable [...]
== END 2017-01-16 10:10 | disposition short-term general hospital (02) ==
LOC: ER 11:47 → 2ND 15:38
PROVIDERS: Emergency Medicine
DX: R55 Syncope and collapse (principal); Z95.2 Presence of prosthetic heart valve; I25.10 Atherosclerotic heart disease of native coronary artery without angina pectoris
CPT/HCPCS: G0378